=== PATIENT | female | born 1960 | race Caucasian/White ===

== ENCOUNTER 2019-12-22 07:22 | Outpatient (CLI) | payer BC, SELFPAY ==
[2019-12-22 07:42] LABS: Hematocrit 40.7 % (37.0-47.0); Hemoglobin 13.4 g/dL (12.0-15.0); Mean Corpuscular HGB Conc 32.9 g/dl (32-36); Mean Corpuscular Volume 97.1 fl (80-100); Mean Platelet Volume 9.6 fl (7.4-10.4); Platelet Count Result 293 k/mm3 (150-375); Red Blood Count 4.19 M/mm3 (4.2-5.4); Red Cell Distribution Width 12.9 % (11.5-14.5); White Blood Count 5.2 K/mm3 (4.5-10.0)
[2019-12-22 07:55] LABS: Alanine Aminotransferase 28 U/L (4-35); Albumin Level 4.5 g/dL (3.5-5.1); Alkaline Phosphatase 91 U/L (38-126); Aspartate Amino Transferase 39 U/L (14-36); Bilirubin,Total 0.5 mg/dL (0.2-1.3); Blood Urea Nitrogen 8 mg/dL (7-17); Calcium 9.2 mg/dL (8.4-10.2); Carbon Dioxide 28 mmol/L (22-30); Chloride 101 mmol/L (98-107); Cholesterol 235 mg/dL (0-200); Estimated Glomerular Filt Rate > 60; Glucose 105 mg/dL (65-105); HDL Direct 97 mg/dL; Potassium 4.3 mmol/L (3.4-5.0); Sodium 135 mmol/L (137-145); Triglycerides 70 mg/dL (<150)
[2019-12-22 08:07] LABS: LDL Cholesterol Direct 115 mg/dL
== END 2019-12-22 07:23 | disposition home or self-care (01) ==
LOC: ANHLAB 07:24
PROVIDERS: PCP Family Medicine; Visit Provider Physician Assistant
DX: I10 Essential (primary) hypertension (principal); E78.2 Mixed hyperlipidemia
CPT/HCPCS: 36415; 80053; 80061; 85027

== ENCOUNTER 2020-01-30 14:47 | Outpatient (CLI) | payer BC, SELFPAY ==
[2020-01-30 15:57] LABS: Alanine Aminotransferase 21 U/L (4-35); Albumin Level 4.3 g/dL (3.5-5.1); Alkaline Phosphatase 60 U/L (38-126); Anion Gap 11.8 mmol/L (7-16); Aspartate Amino Transferase 24 U/L (14-36); Bilirubin,Total 0.2 mg/dL (0.2-1.3); Blood Urea Nitrogen 7 mg/dL (7-17); Calcium 9.5 mg/dL (8.4-10.2); Carbon Dioxide 29 mmol/L (22-30); Chloride 103 mmol/L (98-107); Estimated Glomerular Filt Rate > 60; Glucose 115 mg/dL (65-105); Potassium 3.8 mmol/L (3.4-5.0); Sodium 140 mmol/L (137-145)
== END 2020-01-30 14:48 | disposition home or self-care (01) ==
PROVIDERS: PCP Family Medicine; Visit Provider Family Medicine
DX: R79.89 Other specified abnormal findings of blood chemistry (principal); E87.1 Hypo-osmolality and hyponatremia
CPT/HCPCS: 36415; 80053

== ENCOUNTER 2020-04-21 00:41 | Outpatient (CLI) | payer BC, SELFPAY ==
[2020-04-21 17:41] LABS: SARS-CoV-2 RNA PCR Negative
== END 2020-04-21 00:42 | disposition home or self-care (01) ==
LOC: ANHCOVIDDT 00:41
PROVIDERS: PCP Family Medicine; Visit Provider Internal Medicine Gastroenterology
DX: Z01.812 Encounter for preprocedural laboratory examination (principal); Z20.828 Contact with and (suspected) exposure to other viral communicable diseases
CPT/HCPCS: 87635; C9803; U0003

== ENCOUNTER 2020-04-23 02:16 | Day surgery (SDC) | payer BC, SELFPAY ==
[2020-04-17 14:30] VITALS: BMI 26.7
[2020-04-23 07:47] VITALS: BP 149/92; PULSE 111; RESP 18; TEMP 36.4; O2SAT 100; BMI 27.5
[2020-04-23] MEDS: LACTATED RINGERS 1,000 ML 150 ML IV CONT (08:00)
--- NOTE | 2020-04-23 08:07 | WPDANESEPPF ---
Anes - Initial Pre Proc Eval Procedure: Operation Date: 04/23/20 08:30 Proposed Procedures p Screening Colonoscopy - Ramirez Moore MD Date/Time: 04/23/20 08:07 Surgeon: Ramirez Moore MD Pre Op Diagnosis: neoplasm screening Patient Data Age: 60 Gender: F Height: 5 ft 5 in Weight: 75.1 kg Last Vital Signs Temp 97.5 F L 04/23/20 07:47 Pulse 111 H 04/23/20 07:47 Resp 18 04/23/20 07:47 BP 149/92 H 04/23/20 07:47 Pulse Ox 100 04/23/20 07:47 Allergies Allergy/AdvReac Type Severity Reaction Status Date / Time No Known Allergies Allergy Verified 04/23/20 07:46 Home Medications Medication Instructions Recorded Confirmed Type peg 3350-electrolytes 236 240 ml PO Q10M #4000 ml 02/15/20 Rx gram-22.74 gram-6.74 gram-5.86 gram solution Adults Multivitamin 1 tab-cap PO DAILY 04/17/20 04/17/20 History ibuprofen 200 mg PO QAM 04/17/20 04/17/20 History lisinopril 10 mg PO DAILY 04/17/20 04/23/20 History loratadine [Claritin] 10 mg PO DAILY 04/17/20 04/17/20 History peg 3350-electrolytes 236 240 ml PO Q10M #4000 ml 04/21/20 Rx gram-22.74 gram-6.74 gram-5.86 gram solution Patient hx anesthesia problems: none Family hx anesthesia problems: none PMFSH Past Medical History Medical History (Updated 01/06/20 @ 21:52 by Lucero Medina MD) Diverticulosis HTN (hypertension) Surgical History Surgical History History of total abdominal hysterectomy and bilateral salpingo-oophorectomy 01/10/2019 [place] teeth removed Family History Family History Mother Hypertension Patient's mother is in good health Father Carcinoma of colon Family history of malignant neoplasm, Onset Age: 72 Sibling Patient's sister is in good health Patient's brother is in good health Social History Social History (Updated 12/31/19 @ 13:52 by Belgica Werner) Smoking status: Never smoker Second hand tobacco smoke exposure: No Alcohol intake: current Drinks per week: 7 Alcohol use details: WINE Substance use: never Substance use type: does not use Living arrangements: alone Gender identity (if verbalized by the patient): Female Spiritual care concerns: No Anes - Eval Final PreProcedure Day of Procedure 04/23/20 08:07 Patient weight: overweight Heart: regular rate and rhythm Lungs: clear to auscultation Airway: Mallampati scale class II Neurological: alert and oriented Last oral intake: >/= 8 hours ASA classification: II Emergent: no Anesthetic plan: proceed Anesthesia type and monitoring: general GIVS and standard monitoring Informed Consent: The patient's anesthetic plan and its attendant risks and benefits were discussed with the patient/family/POA. Questions were solicited and answers provided to the satisfaction of the patient/family/POA.
--- NOTE | 2020-04-23 08:22 | PM.HPGS ---
History of Present Illness History of Present Illness Consent: Risks, benefits, and alternatives have been discussed and questions answered. Patient agrees to proceed with procedure. Chief complaint: neoplasm screening Narrative: Ana Diaz is a 60 year old female with colon polyps 6 years ago. Review of Systems Constitutional: Constitutional: Denies headache(s) and Denies weakness Eyes: Eyes: Denies blurry vision ENT: Reports Normal hearing present, Denies headache(s) and Denies neck pain Cardiovascular: Cardiovascular: Denies chest pain and Denies dyspnea Respiratory: Respiratory: Denies dyspnea Gastrointestinal: Gastrointestinal: Reports no additional gastrointestinal complaints Genitourinary: Genitourinary: Denies dysuria Musculoskeletal: Musculoskeletal: Denies neck pain Integumentary/Breasts: Skin/Breast: Denies dry skin Neurologic: Reports Normal hearing present, Denies headache(s) and Denies weakness Psychiatric: Psychiatric: Denies anxiety Endocrine: Endocrine: Denies change in body appearance Hematologic/Lymphatic: Hematologic/Lymphatic: Denies easy bleeding Allergic/Immunologic: Allergic/Immunologic: Denies urticaria PMFSH Past Medical History Medical History (Updated 04/23/20 @ 08:22 by Ramirez Moore MD) Adenomatous colon polyp Diverticulosis HTN (hypertension) Surgical History Surgical History History of total abdominal hysterectomy and bilateral salpingo-oophorectomy 01/10/2019 [place] teeth removed Family History Family History Mother Hypertension Patient's mother is in good health Father Carcinoma of colon Family history of malignant neoplasm, Onset Age: 72 Sibling Patient's sister is in good health Patient's brother is in good health Social History Social History (Updated 12/31/19 @ 13:52 by Belgica Werner) Smoking status: Never smoker Second hand tobacco smoke exposure: No Alcohol intake: current Drinks per week: 7 Alcohol use details: WINE Substance use: never Substance use type: does not use Living arrangements: alone Gender identity (if verbalized by the patient): Female Spiritual care concerns: No Meds Home Medications and Allergies Home Medications Medication Instructions Recorded Confirmed Type peg 3350-electrolytes 236 240 ml PO Q10M #4000 ml 02/15/20 Rx gram-22.74 gram-6.74 gram-5.86 gram solution Adults Multivitamin 1 tab-cap PO DAILY 04/17/20 04/17/20 History ibuprofen 200 mg PO QAM 04/17/20 04/17/20 History lisinopril 10 mg PO DAILY 04/17/20 04/23/20 History loratadine [Claritin] 10 mg PO DAILY 04/17/20 04/17/20 History peg 3350-electrolytes 236 240 ml PO Q10M #4000 ml 04/21/20 Rx gram-22.74 gram-6.74 gram-5.86 gram solution Allergies Allergy/AdvReac Type Severity Reaction Status Date / Time No Known Allergies Allergy Verified 04/23/20 07:46 Vital Signs Vital Signs - 24 hr 04/23/20 07:47 Temperature 97.5 F L Pulse Rate 111 H Respiratory Rate 18 Blood Pressure 149/92 H Pulse Oximetry 100 Exam Const: General: comfortable and no acute distress HENMT: General nose exam: Normal nares present Eyes: General: appearance normal, both eyes and all related structures Neck: Neck: no JVD Resp: Auscultation: clear to auscultation bilaterally Cardio: Rate: regular rate Rhythm: regular rhythm GI: Inspection: non-distended GI Palp: Yes Soft to palpation Skin: General skin exam: normal color Neuro: General: gait normal Speech: normal speech Extrem: General: normal to inspection Psych: Mental Status: mental status grossly normal Assessment and Plan Assessment and plan (1) Adenomatous colon polyp: Code(s): D12.6 - Benign neoplasm of colon, unspecified Status: Acute Assessment and Plan: will proceed with colon
[2020-04-23 08:46] VITALS: BP 132/87; PULSE 99; RESP 31; O2SAT 98
[2020-04-23 08:56] VITALS: BP 136/86; PULSE 91; RESP 21; O2SAT 97
[2020-04-23 09:08] VITALS: BP 147/100; PULSE 90; RESP 22; O2SAT 100
== END 2020-04-23 09:15 | disposition home or self-care (01) ==
PROVIDERS: PCP Family Medicine; Visit Provider Internal Medicine Gastroenterology
PROC: 0DJD8ZZ Inspection of Lower Intestinal Tract, Via Natural or Artificial Opening Endoscopic (ICD-10-PCS; CPT 45378; principal; 2020-04-23 08:30)
DX: Z12.11 Encounter for screening for malignant neoplasm of colon (principal); D12.4 Benign neoplasm of descending colon; K57.30 Diverticulosis of large intestine without perforation or abscess without bleeding; K64.8 Other hemorrhoids; I10 Essential (primary) hypertension
CPT/HCPCS: 45380; 88305; J2704; J7120

== ENCOUNTER 2020-12-24 06:54 | Outpatient (CLI) | payer BC, SELFPAY ==
[2020-12-24 07:21] LABS: Basophils Absolute Auto 0.1 K/mm3 (0.0-0.1); Eosinophils Absolute Auto 0.2 K/mm3 (0-0.3); Hematocrit 39.1 % (37.0-47.0); Hemoglobin 12.8 g/dL (12.0-15.0); Immature Granulocyte Absolute 0.02 K/mm3 (0.00-0.031); Immature Granulocyte Percent A 0.4 % (0-0.5); Lymphocytes Percent Auto 32.4 % (18.3-44.2); Mean Corpuscular HGB Conc 32.7 g/dl (32-36); Mean Corpuscular Hemoglobin 31.4 pg (26-34); Mean Corpuscular Volume 95.8 fl (80-100); Mean Platelet Volume 9.6 fl (7.4-10.4); Monocytes Absolute Auto 0.5 K/mm3 (0.1-0.6); Monocytes Percent Auto 9.7 % (2.6-8.5); Neutrophils Absolute Auto 2.8 K/mm3 (1.3-6.7); Neutrophils Percent Auto 52.5 % (45.5-73.1); Platelet Count Result 351 k/mm3 (150-375); Red Blood Count 4.08 M/mm3 (4.2-5.4); Red Cell Distribution Width 12.3 % (11.5-14.5); White Blood Count 5.2 K/mm3 (4.5-10.0)
[2020-12-24 07:26] LABS: Alanine Aminotransferase 22 U/L (4-35); Albumin Level 4.1 g/dL (3.5-5.1); Alkaline Phosphatase 57 U/L (38-126); Anion Gap 7 mmol/L (8-16); Aspartate Amino Transferase 33 U/L (14-36); Bilirubin,Total 0.3 mg/dL (0.2-1.3); Blood Urea Nitrogen 7 mg/dL (7-17); Calcium 9.8 mg/dL (8.4-10.2); Carbon Dioxide 28 mmol/L (22-30); Chloride 107 mmol/L (98-107); Cholesterol 228 mg/dL (0-200); Estimated Glomerular Filt Rate > 60; Glucose 106 mg/dL (65-105); HDL Direct 66 mg/dL; Potassium 4.1 mmol/L (3.4-5.0); Sodium 142 mmol/L (137-145); Triglycerides 100 mg/dL (<150)
[2020-12-24 07:29] LABS: Hemoglobin A1C 5.7 % (<5.7)
[2020-12-24 07:37] LABS: LDL Cholesterol Direct 110 mg/dL
== END 2020-12-24 06:55 | disposition home or self-care (01) ==
PROVIDERS: PCP Family Medicine; Visit Provider Family Medicine
DX: E78.2 Mixed hyperlipidemia (principal); F41.9 Anxiety disorder, unspecified; R73.9 Hyperglycemia, unspecified; I10 Essential (primary) hypertension
CPT/HCPCS: 36415; 80053; 80061; 83036; 84443; 85025

== ENCOUNTER → 2021-01-13 13:39 | Outpatient (CLI) | payer BC, SELFPAY ==
--- NOTE | ~2021-01-13 | MM_ITS ---
EXAMINATION: MM screening [place] BI w angeline HISTORY: Screening mammogram TECHNIQUE: Craniocaudal and mediolateral oblique 3-D tomosynthesis images were obtained and synthetic 2-D images were generated. CAD analysis was submitted and interpreted. COMPARISON: No prior mammogram is available for comparison at this institution. BREAST PARENCHYMAL COMPOSITION: There are scattered areas of fibroglandular density. FINDINGS: There is no evidence of suspicious mass, calcification, or architectural distortion to sugg est malignancy in either breast. There has been no suspicious interval change. IMPRESSION: 1. No mammographic evidence of malignancy. 2. Recommend routine screening mammography in one year. BI-RADS Category 1: Negative Reviewed, dictated and finalized at location B.
== END ==
PROVIDERS: PCP Family Medicine; Visit Provider Family Medicine
DX: Z12.31 Encounter for screening mammogram for malignant neoplasm of breast (principal)
CPT/HCPCS: 77063; 77067

== ENCOUNTER 2021-12-16 07:35 | Outpatient (CLI) | payer BC, SELFPAY ==
[2021-12-16 07:57] LABS: Basophils Absolute Auto 0.1 K/mm3 (0.0-0.1); Basophils Percent Auto 1.3 % (0.2-1.2); Eosinophils Absolute Auto 0.3 K/mm3 (0-0.3); Eosinophils Percent Auto 5.3 % (0-4.4); Hematocrit 41.2 % (37.0-47.0); Hemoglobin 13.1 g/dL (12.0-15.0); Immature Granulocyte Absolute 0.01 K/mm3 (0.00-0.031); Immature Granulocyte Percent A 0.2 % (0-0.5); Lymphocytes Absolute Auto 1.49 K/mm3 (0.9-3.2); Lymphocytes Percent Auto 28.2 % (18.3-44.2); Mean Corpuscular HGB Conc 31.8 g/dl (32-36); Mean Corpuscular Hemoglobin 32.2 pg (26-34); Mean Corpuscular Volume 101.2 fl (80-100); Mean Platelet Volume 9.6 fl (7.4-10.4); Monocytes Absolute Auto 0.7 K/mm3 (0.1-0.6); Monocytes Percent Auto 12.3 % (2.6-8.5); Neutrophils Absolute Auto 2.8 K/mm3 (1.3-6.7); Neutrophils Percent Auto 52.7 % (45.5-73.1); Platelet Count Result 269 k/mm3 (150-375); Red Blood Count 4.07 M/mm3 (4.2-5.4); Red Cell Distribution Width 13.3 % (11.5-14.5); White Blood Count 5.3 K/mm3 (4.5-10.0)
[2021-12-16 08:07] LABS: Hemoglobin A1C 5.5 % (<5.7)
[2021-12-16 08:11] LABS: Alanine Aminotransferase 27 U/L (6-35); Albumin Level 4.4 g/dL (3.5-5.1); Alkaline Phosphatase 76 U/L (38-126); Anion Gap 5 mmol/L (8-16); Aspartate Amino Transferase 33 U/L (14-36); Bilirubin,Total 0.5 mg/dL (0.2-1.3); Blood Urea Nitrogen 11 mg/dL (7-17); Calcium 8.9 mg/dL (8.4-10.2); Carbon Dioxide 28 mmol/L (22-30); Chloride 107 mmol/L (98-107); Cholesterol 265 mg/dL (0-200); Estimated Glomerular Filt Rate > 60; Glucose 107 mg/dL (65-110); HDL Direct 90 mg/dL; Potassium 4.4 mmol/L (3.4-5.0); Sodium 140 mmol/L (137-145); Triglycerides 62 mg/dL (<150)
[2021-12-16 08:27] LABS: LDL Cholesterol Direct 134 mg/dL
== END 2021-12-16 07:36 | disposition home or self-care (01) ==
LOC: ANHLAB 07:37
PROVIDERS: PCP Family Medicine; Visit Provider Nurse Practitioner Gerontology
DX: R73.9 Hyperglycemia, unspecified (principal); I10 Essential (primary) hypertension
CPT/HCPCS: 36415; 80053; 80061; 83036; 84443; 85025

== ENCOUNTER 2022-02-14 13:20 | Emergency (ER) | payer BC, SELFPAY ==
--- NOTE | 2022-02-14 13:36 | ED.SKABFB ---
HPI - Skin/Abscess/Foreign Bdy General Chief complaint: Skin/Abscess/Foreign Body Stated complaint: lumps on chest Time Seen by Provider: 02/14/22 15:00 Source: patient Mode of arrival: ambulatory Limitations: no limitations History of Present Illness HPI narrative: Ms. Boyd is a 61-year-old female patient presenting to the clinic today with complaints of lumps on her chest is 2 days She reports she has had a scratchy throat. She denies any fever or chills. She reports that these lumps on her chest seem to swell and go to down. She taken a at home COVID test this morning it was negative. Related Data Home Medications Medication Instructions Recorded Confirmed Adults Multivitamin 1 tab-cap PO DAILY 04/17/20 02/14/22 ibuprofen 200 mg tablet 200 mg PO QAM 04/17/20 02/14/22 loratadine 10 mg tablet (Claritin) 10 mg PO DAILY 04/17/20 02/14/22 Allergies Allergy/AdvReac Type Severity Reaction Status Date / Time No Known Allergies Allergy Verified 02/14/22 13:25 Review of Systems Review of Systems: Pertinent positives per HPI. Patient denies any fever, chills, rash, headache, visual changes, dizziness, cough, runny nose, sore throat, shortness of breath, chest pain, palpitations, nausea, vomiting, diarrhea, constipation, abdominal pain, or any urinary issues. REPLACED BY [facility] Past Medical History Medical History Abnormal colonoscopy 2019, repeat in 5 years. Adenomatous colon polyp Diverticulosis HTN (hypertension) Surgical History Surgical History History of total abdominal hysterectomy and bilateral salpingo-oophorectomy 01/10/2019 Hx of colonoscopy with polypectomy [place] teeth removed Family History Family History Mother Hypertension Patient's mother is in good health Father Carcinoma of colon Family history of malignant neoplasm, Onset Age: 72 Sibling Patient's sister is in good health Patient's brother is in good health Social History Social History Social History: Single Smoking status: Never smoker Second hand tobacco smoke exposure: No Alcohol intake: current Drinks per week: 7 Alcohol use details: WINE Substance use: never Substance use type: does not use Gender identity (if verbalized by the patient): Female Sexual Orientation (if Verbalized by the Patient): Straight or Heterosexual Spiritual care concerns: No Comments At the time of my signature, I reviewed and agree with the nursing past medical, surgical, social, and family history. There is no relevant family history pertinent to the patient complaint. Exam Narrative: General: Well-developed, well nourished, in no apparent distress Head: Normocephalic, atraumatic. Lymph: Left supraclavicular lymph node swelling, nontender Cardio: Regular rate and rhythm, s1 and s2 normal, no murmur appreciated. Resp: Clear to auscultation bilaterally, no rhonchi, rales, wheezing or rubs. Integumentary: Bush, warm, and dry, intact without lesion, no rashes. Course Course Emergency Course: Portions of this record may have been created with voice recognition software. Level of Care: Express Care Visit Vital Signs Vital signs: Vital signs reviewed MDM - Skin/Abscess/Foreign Bdy MDM Narrative Medical decision making narrative: At the time of visit patient is resting comfortably on the exam table. Strep screen was obtained and was negative in the clinic today. She is already done a COVID test at home and it was negative. Supportive measures were discussed with the patient she voiced understanding of discharge instructions and agrees to treatment plan. Differential Diagnosis Differential diagnosis: Likely cellulitis and other (Lymphadenopathy, strep pharyngitis, viral syndrome) D
[2022-02-14 13:50] VITALS: BP 151/88; PULSE 96; RESP 20; TEMP 36.9; O2SAT 100
== END 2022-02-14 15:00 | disposition home or self-care (01) ==
PROVIDERS: Emergency Provider Nurse Practitioner Family; PCP Family Medicine
DX: L04.0 Acute lymphadenitis of face, head and neck (principal); I10 Essential (primary) hypertension
CPT/HCPCS: 87081; 87880; 99213; G0463

== ENCOUNTER → 2022-03-22 16:00 | Outpatient (CLI) | payer BC, SELFPAY ==
--- NOTE | ~2022-03-22 | XR_ITS ---
EXAMINATION: XR chest 2V 03/22/2022 16:14 INDICATION: Shortness of breath PROCEDURE: 2 view chest COMPARISON: No prior studies for comparison. FINDINGS: There is a nodular density in the right mid thorax. No focal pneumonia, effusion or pneumot horax. The cardiomediastinal silhouette is within normal limits. There are no pleural effusions. Th ere is no pneumothorax suspected. IMPRESSION: 1: Nodular density right mid thorax on PA view. This is not confirmed on lateral view. Correlation w ith CT chest recommended. Reviewed, dictated and finalized at location A. IMPRESSION: 1: Nodular density right mid thorax on PA view. This is not confirmed on later al view. Correlation with CT chest recommended.
== END ==
PROVIDERS: PCP Family Medicine; Visit Provider Family Medicine
DX: R06.02 Shortness of breath (principal)
CPT/HCPCS: 71046

== ENCOUNTER 2022-03-24 01:39 | Day surgery (SDC) | payer BC, SELFPAY ==
[2022-03-19 12:27] VITALS: BMI 28.3
[2022-03-24 08:14] VITALS: BP 163/94; PULSE 96; RESP 20; TEMP 37; O2SAT 98
[2022-03-24] MEDS: LACTATED RINGERS 1,000 ML 150 ML IV CONT (08:25)
--- NOTE | 2022-03-24 08:37 | WPDANESEPPF ---
Anes - Initial Pre Proc Eval Procedure: Operation Date: 03/24/22 09:45 Proposed Procedures p Esophagogastroduodenoscopy - Ramirez Moore MD Date/Time: 03/24/22 08:37 Surgeon: Ramirez Moore MD Pre Op Diagnosis: GERD Patient Data Age: 62 Gender: F Height: 1.65 m Weight: 75.4 kg Last Vital Signs Temp 98.6 F 03/24/22 08:14 Pulse 96 03/24/22 08:14 Resp 20 03/24/22 08:14 BP 163/94 H 03/24/22 08:14 Pulse Ox 98 03/24/22 08:14 O2 Del Method Room Air 03/24/22 08:14 Allergies Allergy/AdvReac Type Severity Reaction Status Date / Time No Known Allergies Allergy Verified 03/24/22 08:13 Home Medications Medication Instructions Recorded Confirmed Type Adults Multivitamin 1 tab-cap PO DAILY 04/17/20 03/19/22 History loratadine 10 mg tablet (Claritin) 10 mg PO DAILY 04/17/20 03/19/22 History lisinopril 10 mg tablet See Rx Instructions .Route 02/26/22 03/19/22 Rx .COMPLEX #90 tabs pantoprazole 40 mg tablet,delayed 40 mg PO QAM #90 tabs 03/11/22 03/19/22 Rx release mecobalamin (vitamin B12) 1,000 1,000 mcg PO DAILY #60 ea 03/15/22 03/19/22 Rx mcg lozenges Patient hx anesthesia problems: none Family hx anesthesia problems: none Results Review: All pre-operative results and documents have been reviewed as part of the pre-operative evaluation. [facility] Past Medical History Medical History Abnormal colonoscopy 2019, repeat in 5 years. Adenomatous colon polyp Adnexal mass Bulky or enlarged uterus Cellulitis and abscess of finger, unspecified Cutaneous abscess of unspecified hand Diverticulosis Elevated BP without diagnosis of hypertension Essential (primary) hypertension Fibroids, subserous HTN (hypertension) Mass of ovary Mixed hyperlipidemia Surgical History Surgical History History of total abdominal hysterectomy and bilateral salpingo-oophorectomy 01/10/2019 Hx of colonoscopy with polypectomy [place] teeth removed Family History Family History Mother Hypertension Patient's mother is in good health Father Carcinoma of colon Family history of malignant neoplasm, Onset Age: 72 Sibling Patient's sister is in good health Patient's brother is in good health Social History Social History Social History: Single Smoking status: Never smoker Second hand tobacco smoke exposure: No Alcohol intake: current Drinks per week: 7 Alcohol use details: one glass of wine daily Substance use: current Substance use type: does not use Living arrangements: alone Gender identity (if verbalized by the patient): Female Sexual Orientation (if Verbalized by the Patient): Straight or Heterosexual Spiritual care concerns: No Anes - Eval Final PreProcedure Day of Procedure 03/24/22 08:37 Patient weight: normal Heart: regular rate and rhythm Lungs: clear to auscultation Airway: Mallampati scale class II Neurological: alert and oriented Last oral intake: >/= 8 hours ASA classification: II Emergent: no Anesthetic plan: proceed Anesthesia type and monitoring: general GIVS and standard monitoring Results Review: All pre-operative results and documents have been reviewed as part of the pre-operative evaluation. Informed Consent: The patient's anesthetic plan and its attendant risks and benefits were discussed with the patient/family/POA. Questions were solicited and answers provided to the satisfaction of the patient/family/POA.
--- NOTE | 2022-03-24 09:06 | PM.HPGS ---
History of Present Illness History of Present Illness Consent: Risks, benefits, and alternatives have been discussed and questions answered. Patient agrees to proceed with procedure. Chief complaint: GERD Narrative: Ana Diaz is a 62 year old female with gerd and intermittent dysphagia but better after started using protonix few months ago, never had egd Review of Systems Constitutional: Constitutional: Denies headache(s) and Denies weakness Eyes: Eyes: Denies blurry vision ENT: Reports Normal hearing present, Denies headache(s) and Denies neck pain Cardiovascular: Cardiovascular: Denies chest pain and Denies dyspnea Respiratory: Respiratory: Denies dyspnea Gastrointestinal: Gastrointestinal: Reports no additional gastrointestinal complaints Genitourinary: Genitourinary: Denies dysuria Musculoskeletal: Musculoskeletal: Denies neck pain Integumentary/Breasts: Skin/Breast: Denies dry skin Neurologic: Reports Normal hearing present, Denies headache(s) and Denies weakness Psychiatric: Psychiatric: Denies anxiety Endocrine: Endocrine: Denies change in body appearance Hematologic/Lymphatic: Hematologic/Lymphatic: Denies easy bleeding Allergic/Immunologic: Allergic/Immunologic: Denies urticaria PMFSH Past Medical History Medical History Abnormal colonoscopy 2019, repeat in 5 years. Adenomatous colon polyp Adnexal mass Bulky or enlarged uterus Cellulitis and abscess of finger, unspecified Cutaneous abscess of unspecified hand Diverticulosis Elevated BP without diagnosis of hypertension Essential (primary) hypertension Fibroids, subserous HTN (hypertension) Mass of ovary Mixed hyperlipidemia Surgical History Surgical History History of total abdominal hysterectomy and bilateral salpingo-oophorectomy 01/10/2019 Hx of colonoscopy with polypectomy [place] teeth removed Family History Family History Mother Hypertension Patient's mother is in good health Father Carcinoma of colon Family history of malignant neoplasm, Onset Age: 72 Sibling Patient's sister is in good health Patient's brother is in good health Social History Social History Social History: Single Smoking status: Never smoker Second hand tobacco smoke exposure: No Alcohol intake: current Drinks per week: 7 Alcohol use details: one glass of wine daily Substance use: current Substance use type: does not use Living arrangements: alone Gender identity (if verbalized by the patient): Female Sexual Orientation (if Verbalized by the Patient): Straight or Heterosexual Spiritual care concerns: No Meds Home Medications and Allergies Home Medications Medication Instructions Recorded Confirmed Type Adults Multivitamin 1 tab-cap PO DAILY 04/17/20 03/19/22 History loratadine 10 mg tablet (Claritin) 10 mg PO DAILY 04/17/20 03/19/22 History lisinopril 10 mg tablet See Rx Instructions .Route 02/26/22 03/19/22 Rx .COMPLEX #90 tabs pantoprazole 40 mg tablet,delayed 40 mg PO QAM #90 tabs 03/11/22 03/19/22 Rx release mecobalamin (vitamin B12) 1,000 1,000 mcg PO DAILY #60 ea 03/15/22 03/19/22 Rx mcg lozenges Allergies Allergy/AdvReac Type Severity Reaction Status Date / Time No Known Allergies Allergy Verified 03/24/22 08:13 Vital Signs Vital Signs - 24 hr 03/24/22 08:14 Temperature 98.6 F Pulse Rate 96 Respiratory Rate 20 Blood Pressure 163/94 H Pulse Oximetry 98 Oxygen Delivery Room Air Exam Const: General: comfortable and no acute distress HENMT: General nose exam: Normal nares present Eyes: General: appearance normal, both eyes and all related structures Neck: Neck: no JVD Resp: Auscultation: clear to auscultation bilaterally Ca
[2022-03-24 09:23] VITALS: BP 150/95; PULSE 95; RESP 23; O2SAT 98
[2022-03-24 09:34] VITALS: BP 155/103; PULSE 93; RESP 24; O2SAT 98
[2022-03-24 09:47] VITALS: BP 161/106; PULSE 90; RESP 21; O2SAT 98
== END 2022-03-24 09:53 | disposition home or self-care (01) ==
PROVIDERS: PCP Family Medicine; Visit Provider Internal Medicine Gastroenterology
PROC: 0DJ08ZZ Inspection of Upper Intestinal Tract, Via Natural or Artificial Opening Endoscopic (ICD-10-PCS; CPT 43235; principal; 2022-03-24 09:45)
DX: K21.9 Gastro-esophageal reflux disease without esophagitis (principal); K22.10 Ulcer of esophagus without bleeding; K44.9 Diaphragmatic hernia without obstruction or gangrene; K22.2 Esophageal obstruction; I10 Essential (primary) hypertension; E78.2 Mixed hyperlipidemia
CPT/HCPCS: 43239; 43249; 88305; C1726; J2704; J7120

== ENCOUNTER → 2022-04-05 13:40 | Outpatient (CLI) | payer BC, SELFPAY ==
--- NOTE | ~2022-04-05 | CT_ITS ---
EXAMINATION: CT diagnostic chest wo con DATE: 04/05/2022 14:07 INDICATION: Follow-up abnormal x-ray TECHNIQUE: Computed tomography (CT) of the chest was performed without intravenous contrast. The dose -length product was 330.07 mGy-cm. Automated exposure control and iterative reconstruction technique were employed. COMPARISON: Chest dated 03/22/2022 FINDINGS: There is an 8 mm nodule in the right middle lobe corresponding to the x-ray finding. There is an 7 mm nodule in the right middle lobe, image 64, located medially. There is mediastinal lymphade nopathy, nonspecific. No significant vascular abnormality. There is mild thickening of the distal eso phagus. Heart size normal. No significant pleural or pericardial effusion. The liver, spleen, pancreas, are unremarkable. There are small bilateral low-density masses in the ad renal glands bilaterally, largest measuring 1.6 cm in the right adrenal gland. These are most likely benign adenoma statistically. Gallbladder is present. No axillary lymphadenopathy. Mild thoracic and upper lumbar spondylosis. IMPRESSION: 1. Right middle lobe nodules measuring 8 and 7 mm respectively which are suspicious. Recommend follow -up PET/CT scan or repeat CT in 3 months. 2: Mild mediastinal lymphadenopathy, nonspecific. Reviewed, dictated and finalized at location A. IMPRESSION: 1. Right middle lobe nodules measuring 8 and 7 mm respectively which are suspic ious. Recommend follow-up PET/CT scan or repeat CT in 3 months. 2: Mild mediastinal lymphadenopathy, nonspecific.
== END ==
PROVIDERS: PCP Nurse Practitioner Gerontology; Visit Provider Nurse Practitioner Gerontology
DX: R91.8 Other nonspecific abnormal finding of lung field (principal)
CPT/HCPCS: 71250

== ENCOUNTER → 2022-06-14 10:36 | Outpatient (CLI) | payer BC, SELFPAY ==
--- NOTE | ~2022-06-14 | MM_ITS ---
EXAMINATION: MM screening [place] BI w angeline HISTORY: Screening TECHNIQUE: Craniocaudal and mediolateral oblique 3-D tomosynthesis images were obtained and synthetic 2-D images were generated. CAD analysis was submitted and interpreted. COMPARISON: No prior mammogram is available for comparison at this institution. BREAST PARENCHYMAL COMPOSITION: There are scattered areas of fibroglandular density. FINDINGS: There is no evidence of suspicious mass, calcification, or architectural distortion to sugg est malignancy in either breast. There has been no suspicious interval change. IMPRESSION: 1. No mammographic evidence of malignancy. 2. Recommend routine screening mammography in one year. BI-RADS Category 1: Negative Reviewed, dictated and finalized at location B. [employer]
== END ==
PROVIDERS: PCP Family Medicine; Visit Provider Family Medicine
DX: Z12.31 Encounter for screening mammogram for malignant neoplasm of breast (principal)
CPT/HCPCS: 77063; 77067

== ENCOUNTER 2022-06-28 13:53 | Outpatient (CLI) | payer BC, SELFPAY ==
--- NOTE | ~2022-06-28 | CT_ITS ---
CT Scan of the Chest without Contrast: Clinical Indication: Lung nodules Technique: Contiguous sections were acquired throughout the chest without intravenous contrast. Dose reduction technique was used on this scan by utilizing automated exposure control and iterative recon struction technique. The dose-length product (DLP) was 125.51 mGy-cm. COMPARISON: 04/05/2022 Findings: There is no evidence of any significant mediastinal, hilar or axillary lymphadenopathy. The mediastin al soft tissues appear normal. There is no evidence of pleural or pericardial effusion. 2 noncalcified right middle lobe pulmonary nodules are again identified, again measuring approximate 8 mm in diameter each, without significant change from prior exam. Images through the upper abdomen reveal no abnormalities. Impression: Stable 8 mm noncalcified right middle lobe pulmonary nodules. Additional repeat CT scan in 6-9 months recommended. Reviewed, dictated and finalized at [facility]. TASTER Impression: Stable 8 mm noncalcified right middle lobe pulmonary nodules. Additional repeat CT scan in 6-9 months recommended.
== END 2022-06-28 13:54 | disposition home or self-care (01) ==
PROVIDERS: PCP Family Medicine; Visit Provider Internal Medicine Pulmonary Disease
DX: R91.1 Solitary pulmonary nodule (principal); R91.8 Other nonspecific abnormal finding of lung field
CPT/HCPCS: 71250

== ENCOUNTER 2022-06-30 00:14 | Day surgery (SDC) | payer BC, SELFPAY ==
[2022-06-21 15:15] VITALS: BMI 29.1
[2022-06-30 07:56] VITALS: BP 145/88; PULSE 103; RESP 16; TEMP 36.6; O2SAT 95; BMI 28.9
[2022-06-30] MEDS: LACTATED RINGERS 1,000 ML 150 ML IV CONT (08:04)
--- NOTE | 2022-06-30 08:47 | WPDANESEPPF ---
Anes - Initial Pre Proc Eval Procedure: Operation Date: 06/30/22 09:15 Proposed Procedures p Esophagogastroduodenoscopy - Ramirez Moore MD Date/Time: 06/30/22 08:47 Surgeon: Ramirez Moore MD Pre Op Diagnosis: esophageal ring and ulcer Patient Data Age: 62 Gender: F Height: 1.65 m Weight: 78.8 kg Last Vital Signs Temp 98 F 06/30/22 07:56 Pulse 103 H 06/30/22 07:56 Resp 16 06/30/22 07:56 BP 145/88 H 06/30/22 07:56 Pulse Ox 95 06/30/22 07:56 O2 Del Method Room Air 06/30/22 07:56 Allergies Allergy/AdvReac Type Severity Reaction Status Date / Time No Known Allergies Allergy Verified 06/30/22 07:55 Home Medications Medication Instructions Recorded Confirmed Type Adults Multivitamin 1 tab-cap PO DAILY 04/17/20 06/30/22 History loratadine 10 mg tablet (Claritin) 10 mg PO DAILY 04/17/20 06/30/22 History lisinopril 10 mg tablet See Rx Instructions .Route 02/26/22 06/30/22 Rx .COMPLEX #90 tabs mecobalamin (vitamin B12) 1,000 1,000 mcg PO DAILY #60 ea 03/15/22 06/30/22 Rx mcg lozenges pantoprazole 40 mg tablet,delayed 40 mg PO QAM #90 tabs 03/24/22 06/30/22 Rx release Patient hx anesthesia problems: none Family hx anesthesia problems: none Results Review: All pre-operative results and documents have been reviewed as part of the pre-operative evaluation. [facility] Past Medical History Medical History Abnormal colonoscopy 2019, repeat in 5 years. Adenomatous colon polyp Adnexal mass Bulky or enlarged uterus Cellulitis and abscess of finger, unspecified Cutaneous abscess of unspecified hand Diverticulosis Elevated BP without diagnosis of hypertension Essential (primary) hypertension Fibroids, subserous HTN (hypertension) Mass of ovary Mixed hyperlipidemia Surgical History Surgical History History of total abdominal hysterectomy and bilateral salpingo-oophorectomy 01/10/2019 Hx of colonoscopy with polypectomy [employer] teeth removed Family History Family History (Updated 05/06/22 @ 14:51 by Lillian Tapia MA) Mother Hypertension Patient's mother is in good health Father Carcinoma of colon Family history of malignant neoplasm, Onset Age: 72 Sibling Patient's sister is in good health Patient's brother is in good health Status post surgical removal of malignant neoplasm of skin Social History Social History Social History: Single Smoking status: Never smoker Second hand tobacco smoke exposure: No Alcohol intake: current Drinks per week: 7 Alcohol use details: one glass of wine daily Substance use: never Substance use type: does not use Living arrangements: alone Gender identity (if verbalized by the patient): Female Sexual Orientation (if Verbalized by the Patient): Straight or Heterosexual Spiritual care concerns: No Anes - Eval Final PreProcedure Day of Procedure 06/30/22 08:47 Patient weight: normal Heart: regular rate and rhythm Lungs: clear to auscultation Airway: Mallampati scale class II Neurological: alert and oriented Last oral intake: >/= 8 hours ASA classification: II Emergent: no Anesthetic plan: proceed Anesthesia type and monitoring: general GIVS and standard monitoring Results Review: All pre-operative results and documents have been reviewed as part of the pre-operative evaluation. Informed Consent: The patient's anesthetic plan and its attendant risks and benefits were discussed with the patient/family/POA. Questions were solicited and answers provided to the satisfaction of the patient/family/POA.
--- NOTE | 2022-06-30 08:55 | PM.HPGS ---
History of Present Illness History of Present Illness Consent: Risks, benefits, and alternatives have been discussed and questions answered. Patient agrees to proceed with procedure. Chief complaint: esophageal ring and ulcer Narrative: Ana Diaz is a 62 year old female with erosive esophagitis and ring that was dilated 03/2022, much better using pantoprazole. Review of Systems Constitutional: Constitutional: Denies headache(s) and Denies weakness Eyes: Eyes: Denies blurry vision ENT: Reports Normal hearing present, Denies headache(s) and Denies neck pain Cardiovascular: Cardiovascular: Denies chest pain and Denies dyspnea Respiratory: Respiratory: Denies dyspnea Gastrointestinal: Gastrointestinal: Reports no additional gastrointestinal complaints Genitourinary: Genitourinary: Denies dysuria Musculoskeletal: Musculoskeletal: Denies neck pain Integumentary/Breasts: Skin/Breast: Denies dry skin Neurologic: Reports Normal hearing present, Denies headache(s) and Denies weakness Psychiatric: Psychiatric: Denies anxiety Endocrine: Endocrine: Denies change in body appearance Hematologic/Lymphatic: Hematologic/Lymphatic: Denies easy bleeding Allergic/Immunologic: Allergic/Immunologic: Denies urticaria PMFSH Past Medical History Medical History (Updated 06/30/22 @ 08:56 by Ramirez Moore MD) Abnormal colonoscopy 2019, repeat in 5 years. Adenomatous colon polyp Adnexal mass Bulky or enlarged uterus Cellulitis and abscess of finger, unspecified Cutaneous abscess of unspecified hand Diverticulosis Elevated BP without diagnosis of hypertension Esophageal ring Essential (primary) hypertension Fibroids, subserous HTN (hypertension) Mass of ovary Mixed hyperlipidemia Surgical History Surgical History History of total abdominal hysterectomy and bilateral salpingo-oophorectomy 01/10/2019 Hx of colonoscopy with polypectomy [place] teeth removed Family History Family History (Updated 05/06/22 @ 14:51 by Lillian Tapia MA) Mother Hypertension Patient's mother is in good health Father Carcinoma of colon Family history of malignant neoplasm, Onset Age: 72 Sibling Patient's sister is in good health Patient's brother is in good health Status post surgical removal of malignant neoplasm of skin Social History Social History Social History: Single Smoking status: Never smoker Second hand tobacco smoke exposure: No Alcohol intake: current Drinks per week: 7 Alcohol use details: one glass of wine daily Substance use: never Substance use type: does not use Living arrangements: alone Gender identity (if verbalized by the patient): Female Sexual Orientation (if Verbalized by the Patient): Straight or Heterosexual Spiritual care concerns: No Meds Home Medications and Allergies Home Medications Medication Instructions Recorded Confirmed Type Adults Multivitamin 1 tab-cap PO DAILY 04/17/20 06/30/22 History loratadine 10 mg tablet (Claritin) 10 mg PO DAILY 04/17/20 06/30/22 History lisinopril 10 mg tablet See Rx Instructions .Route 02/26/22 06/30/22 Rx .COMPLEX #90 tabs mecobalamin (vitamin B12) 1,000 1,000 mcg PO DAILY #60 ea 03/15/22 06/30/22 Rx mcg lozenges pantoprazole 40 mg tablet,delayed 40 mg PO QAM #90 tabs 03/24/22 06/30/22 Rx release Allergies Allergy/AdvReac Type Severity Reaction Status Date / Time No Known Allergies Allergy Verified 06/30/22 07:55 Vital Signs Vital Signs - 24 hr 06/30/22 07:56 Temperature 98 F Pulse Rate 103 H Respiratory Rate 16 Blood Pressure 145/88 H Pulse Oximetry 95 Oxygen Delivery Room Air Exam Const: General: comfortable and no acute distress HENMT: Face/Nose/Sinus: Normal nares present Eyes: General: appearance normal, both eyes and all related structures Neck: Neck
[2022-06-30 09:17] VITALS: BP 132/91; PULSE 101; RESP 26; O2SAT 93
[2022-06-30 09:27] VITALS: BP 146/92; PULSE 91; RESP 19; O2SAT 99
[2022-06-30 09:37] VITALS: BP 148/91; PULSE 90; RESP 13; O2SAT 99
== END 2022-06-30 09:46 | disposition home or self-care (01) ==
PROVIDERS: PCP Family Medicine; Visit Provider Internal Medicine Gastroenterology
PROC: 0DJ08ZZ Inspection of Upper Intestinal Tract, Via Natural or Artificial Opening Endoscopic (ICD-10-PCS; CPT 43235; principal; 2022-06-30 09:15)
DX: K21.9 Gastro-esophageal reflux disease without esophagitis (principal); K22.2 Esophageal obstruction; K44.9 Diaphragmatic hernia without obstruction or gangrene; I10 Essential (primary) hypertension; Z87.19 Personal history of other diseases of the digestive system
CPT/HCPCS: 43249; C1726; J2704; J7120

== ENCOUNTER 2022-09-13 11:03 | Outpatient (CLI) | payer BC, SELFPAY ==
--- NOTE | ~2022-09-13 | XR_ITS ---
EXAMINATION: XR knee LT 3V DATE: 09/13/2022 11:32 INDICATION: Left knee pain. TECHNIQUE: 3 views of left knee including standing views were obtained. COMPARISON: None. FINDINGS: Bone alignment is normal. No fracture. There is mild tricompartmental osteoarthritis charac terized by tiny osteophytes. No joint space narrowing. There is a small knee joint effusion. IMPRESSION: 1. Mild left knee osteoarthritis. 2. Small left knee joint effusion. Reviewed, dictated and finalized at location A.
--- NOTE | ~2022-09-13 | XR_ITS ---
EXAMINATION: XR knee RT 3V DATE: 09/13/2022 11:32 INDICATION: Right knee pain. TECHNIQUE: 3 views of right knee including standing views were obtained. COMPARISON: None. FINDINGS: Bone alignment is normal. No fracture. There is mild tricompartmental osteoarthritis charac terized by marginal osteophytes. No joint space narrowing. No knee joint effusion. IMPRESSION: 1. Mild right knee osteoarthritis. Reviewed, dictated and finalized at location A.
== END 2022-09-13 11:04 | disposition home or self-care (01) ==
LOC: ANHIMG 11:05
PROVIDERS: PCP Family Medicine; Visit Provider Physician Assistant
DX: M17.0 Bilateral primary osteoarthritis of knee (principal); M25.462 Effusion, left knee
CPT/HCPCS: 73562

== ENCOUNTER 2022-09-20 07:03 | Outpatient (CLI) | payer BC, SELFPAY ==
[2022-09-20 08:17] LABS: Basophils Absolute Auto 0.1 K/mm3 (0.0-0.1); Basophils Percent Auto 0.6 % (0.2-1.2); Eosinophils Absolute Auto 0.2 K/mm3 (0-0.3); Eosinophils Percent Auto 1.9 % (0-4.4); Hematocrit 40.8 % (37.0-47.0); Hemoglobin 13.3 g/dL (12.0-15.0); Immature Granulocyte Absolute 0.04 K/mm3 (0.00-0.031); Immature Granulocyte Percent A 0.5 % (0-0.5); Lymphocytes Absolute Auto 1.46 K/mm3 (0.9-3.2); Lymphocytes Percent Auto 17.4 % (18.3-44.2); Mean Corpuscular HGB Conc 32.6 g/dl (32-36); Mean Corpuscular Hemoglobin 32.5 pg (26-34); Mean Corpuscular Volume 99.8 fl (80-100); Mean Platelet Volume 10.3 fl (7.4-10.4); Monocytes Absolute Auto 0.7 K/mm3 (0.1-0.6); Monocytes Percent Auto 7.8 % (2.6-8.5); Neutrophils Percent Auto 71.8 % (45.5-73.1); Platelet Count Result 308 k/mm3 (150-375); Red Blood Count 4.09 M/mm3 (4.2-5.4); White Blood Count 8.4 K/mm3 (4.5-10.0)
[2022-09-20 09:26] LABS: Alanine Aminotransferase 27 U/L (6-35); Albumin Level 4.6 g/dL (3.5-5.1); Alkaline Phosphatase 76 U/L (38-126); Anion Gap 7 mmol/L (8-16); Aspartate Amino Transferase 32 U/L (14-36); Bilirubin,Total 0.5 mg/dL (0.2-1.3); Blood Urea Nitrogen 14 mg/dL (7-17); Calcium 9.7 mg/dL (8.4-10.2); Carbon Dioxide 27 mmol/L (22-30); Chloride 105 mmol/L (98-107); Cholesterol 255 mg/dL (0-200); Estimated Glomerular Filt Rate > 60; Glucose 103 mg/dL (65-110); HDL Direct 92 mg/dL; Potassium 4.5 mmol/L (3.4-5.0); Sodium 139 mmol/L (137-145); Triglycerides 82 mg/dL (<150)
[2022-09-20 09:37] LABS: LDL Cholesterol Direct 129 mg/dL
== END 2022-09-20 07:04 | disposition home or self-care (01) ==
PROVIDERS: PCP Family Medicine; Visit Provider Physician Assistant
DX: R00.0 Tachycardia, unspecified (principal); E78.2 Mixed hyperlipidemia; I10 Essential (primary) hypertension
CPT/HCPCS: 36415; 80053; 80061; 84443; 85025

== ENCOUNTER 2022-10-23 07:04 | Outpatient (CLI) | payer BC, SELFPAY ==
[2022-10-23 08:26] LABS: Basophils Absolute Auto 0.1 K/mm3 (0.0-0.1); Basophils Percent Auto 1.2 % (0.2-1.2); Eosinophils Absolute Auto 0.1 K/mm3 (0-0.3); Eosinophils Percent Auto 1.6 % (0-4.4); Hematocrit 39.8 % (37.0-47.0); Hemoglobin 12.7 g/dL (12.0-15.0); Immature Granulocyte Absolute 0.01 K/mm3 (0.00-0.031); Immature Granulocyte Percent A 0.2 % (0-0.5); Lymphocytes Absolute Auto 1.66 K/mm3 (0.9-3.2); Mean Corpuscular HGB Conc 31.9 g/dl (32-36); Mean Corpuscular Hemoglobin 32.2 pg (26-34); Mean Platelet Volume 10.5 fl (7.4-10.4); Monocytes Absolute Auto 0.6 K/mm3 (0.1-0.6); Monocytes Percent Auto 12.7 % (2.6-8.5); Neutrophils Absolute Auto 2.5 K/mm3 (1.3-6.7); Neutrophils Percent Auto 50.3 % (45.5-73.1); Platelet Count Result 274 k/mm3 (150-375); Red Blood Count 3.94 M/mm3 (4.2-5.4); Red Cell Distribution Width 13.1 % (11.5-14.5); White Blood Count 4.9 K/mm3 (4.5-10.0)
== END 2022-10-23 07:05 | disposition home or self-care (01) ==
PROVIDERS: PCP Family Medicine; Visit Provider Physician Assistant
DX: D64.9 Anemia, unspecified (principal)
CPT/HCPCS: 36415; 85025

== ENCOUNTER 2022-12-13 13:37 | Outpatient (CLI) | payer BC, SELFPAY ==
[2022-12-13 14:00] LABS: Basophils Absolute Auto 0.1 K/mm3 (0.0-0.1); Eosinophils Absolute Auto 0.1 K/mm3 (0-0.3); Eosinophils Percent Auto 0.8 % (0-4.4); Hematocrit 39.9 % (37.0-47.0); Immature Granulocyte Absolute 0.01 K/mm3 (0.00-0.031); Immature Granulocyte Percent A 0.1 % (0-0.5); Lymphocytes Absolute Auto 1.86 K/mm3 (0.9-3.2); Lymphocytes Percent Auto 25.7 % (18.3-44.2); Mean Corpuscular HGB Conc 32.6 g/dl (32-36); Mean Corpuscular Hemoglobin 32.5 pg (26-34); Mean Corpuscular Volume 99.8 fl (80-100); Mean Platelet Volume 9.9 fl (7.4-10.4); Monocytes Absolute Auto 0.6 K/mm3 (0.1-0.6); Monocytes Percent Auto 8.1 % (2.6-8.5); Neutrophils Absolute Auto 4.7 K/mm3 (1.3-6.7); Neutrophils Percent Auto 64.3 % (45.5-73.1); Platelet Count Result 278 k/mm3 (150-375); Red Cell Distribution Width 14.3 % (11.5-14.5); White Blood Count 7.2 K/mm3 (4.5-10.0)
[2022-12-13 14:31] LABS: Iron 111 ug/dL (37-170)
[2022-12-13 14:41] LABS: Percent Iron Saturation 36 % (20-50)
[2022-12-17 05:58] LABS: Red Blood Cell Folate 512 ng/mL RBC (>280)
== END 2022-12-13 13:38 | disposition home or self-care (01) ==
LOC: ANHLAB 13:38
PROVIDERS: PCP Family Medicine; Visit Provider Physician Assistant
DX: D64.9 Anemia, unspecified (principal)
CPT/HCPCS: 36415; 82607; 82728; 82747; 83540; 83550; 85025

== ENCOUNTER 2023-01-05 09:41 | Outpatient (CLI) | payer BC, SELFPAY ==
--- NOTE | ~2023-01-05 | CT_ITS ---
EXAMINATION:CT diagnostic chest wo con DATE: 01/05/2023 10:12 INDICATION: Lung nodules. TECHNIQUE: Computed tomography (CT) of the chest was performed without intravenous contrast. Automate d exposure control and iterative reconstruction technique were employed. The dose-length product (DLP ) was 105.27 mGy-cm. COMPARISON: Chest CT 06/28/2022, 04/05/22 FINDINGS: The lungs demonstrate minimal atelectasis. There are a few nodules in right middle lobe evelyne suring up to 8 mm without change. No pleural effusion. The heart size is normal. No pericardial effus ion. There is a small sliding hiatal hernia. There is mild thoracic spondylosis. IMPRESSION: 1. Pulmonary nodules measuring up to 8 mm, stable from 04/05/2022, likely benign. Noncontrast low-dose chest CT is recommended in one year. Reviewed, dictated and finalized at location A. IMPRESSION: 1. Pulmonary nodules measuring up to 8 mm, stable from 04/05/2022, likely benign . Noncontrast low-dose chest CT is recommended in one year.
== END 2023-01-05 09:42 | disposition home or self-care (01) ==
PROVIDERS: PCP Family Medicine; Visit Provider Internal Medicine Pulmonary Disease
DX: R91.1 Solitary pulmonary nodule (principal); R91.8 Other nonspecific abnormal finding of lung field
CPT/HCPCS: 71250

== ENCOUNTER 2023-04-06 16:05 | Outpatient (CLI) | payer BC, SELFPAY ==
--- NOTE | ~2023-04-06 | US_ITS ---
US venous doppler [facility] DATE: 04/06/2023 16:27 INDICATION: Pain and swelling at left ankle TECHNIQUE: Real-time and color flow imaging and Doppler analysis of the veins of the left lower extre mity COMPARISON: None FINDINGS: There is spontaneous and phasic flow and normal augmentation and color flow signal and norm al compression of the deep veins of the left lower extremity. The left greater saphenous vein is lipscomb nt. IMPRESSION: No evidence of deep venous thrombosis of left lower extremity Reviewed, dictated and finalized at Location A. Reviewed, dictated and finalized at location B.
== END 2023-04-06 16:06 | disposition home or self-care (01) ==
PROVIDERS: PCP Family Medicine; Visit Provider Physician Assistant
DX: R60.0 Localized edema (principal)
CPT/HCPCS: 93971

== ENCOUNTER 2023-09-16 15:43 | Outpatient (CLI) | payer BC, SELFPAY ==
--- NOTE | ~2023-09-16 | XR_ITS ---
EXAMINATION: XR knee RT min 4V DATE: 09/16/2023 16:21 INDICATION: Bilateral primary osteoarthritis of knee. TECHNIQUE: 4 views of right knee including standing views were obtained. COMPARISON: Right knee radiographs 09/13/2022 FINDINGS: Bone alignment is normal. No fracture. There is severe osteoarthritis of lateral compartmen t and mild osteoarthritis of medial and patellofemoral compartments. No knee joint effusion. IMPRESSION: 1. Severe right knee osteoarthritis. Reviewed, dictated and finalized at location A.
--- NOTE | ~2023-09-16 | XR_ITS ---
EXAMINATION: XR knee LT min 4V DATE: 09/16/2023 16:21 INDICATION: Bilateral primary osteoarthritis of knee. TECHNIQUE: 4 views of left knee including standing views were obtained. COMPARISON: Left knee radiographs 09/13/2022 FINDINGS: Bone alignment is normal. No fracture. There is mild tricompartmental osteoarthritis charac terized by tiny osteophytes. No knee joint effusion. IMPRESSION: 1. Mild left knee osteoarthritis. Reviewed, dictated and finalized at location A.
== END 2023-09-16 15:44 | disposition home or self-care (01) ==
LOC: ANHIMG 15:53
PROVIDERS: PCP Family Medicine; Visit Provider Orthopaedic Surgery
DX: M17.0 Bilateral primary osteoarthritis of knee (principal)
CPT/HCPCS: 73564

== ENCOUNTER 2024-01-06 09:36 | Outpatient (CLI) | payer BC, SELFPAY ==
--- NOTE | ~2024-01-06 | CT_ITS ---
CT Scan of the Chest without Contrast: Clinical Indication: Solitary pulmonary nodule Technique: Contiguous sections were acquired throughout the chest without intravenous contrast. Dose reduction technique was used on this scan by utilizing automated exposure control and iterative recon struction technique. The dose-length product (DLP) was 93.76 mGy-cm. COMPARISON: 01/05/2023 Findings: There is no evidence of any significant mediastinal, hilar or axillary lymphadenopathy. The mediastin al soft tissues appear normal. There is no evidence of pleural or pericardial effusion. Stable bilobed right middle lobe pulmonary nodule measuring up to 12 mm in maximum diameter. Stable a nteromedial right middle lobe pulmonary nodule measuring 8 mm in diameter. Images through the upper abdomen reveal stable right adrenal nodule, likely adenoma. Impression: Stable right middle lobe pulmonary nodules, as detailed above. Reviewed, dictated and finalized at location . Impression: Stable right middle lobe pulmonary nodules, as detailed above.
== END 2024-01-06 09:37 | disposition home or self-care (01) ==
LOC: ANHIMG 09:40
PROVIDERS: PCP Family Medicine; Visit Provider Internal Medicine Pulmonary Disease
DX: R91.1 Solitary pulmonary nodule (principal); R91.8 Other nonspecific abnormal finding of lung field
CPT/HCPCS: 71250

== ENCOUNTER 2024-04-16 11:33 | Outpatient (CLI) | payer BC, SELFPAY ==
--- NOTE | ~2024-04-16 | XR_ITS ---
Right Knee Technique: AP, lateral, and sunrise views were obtained. Clinical History: Pain Findings: No fracture or dislocation is seen. Osseous alignment is anatomic. There is advanced degene rative change of the lateral compartment. There is moderate degenerative change of the medial compart ment. There is minimal degenerative change of the patellofemoral compartment. Soft tissues are unrema rkable. No joint effusion is seen. Impression: Tricompartmental degenerative change, as detailed above, worst at the lateral compartment. Reviewed, dictated and finalized at location M. Impression: Tricompartmental degenerative change, as detailed above, worst at the lateral c ompartment.
== END 2024-04-16 11:34 | disposition home or self-care (01) ==
LOC: MICIMG 11:35
PROVIDERS: PCP Family Medicine; Visit Provider Orthopaedic Surgery
DX: M17.0 Bilateral primary osteoarthritis of knee (principal)
CPT/HCPCS: 73564

== ENCOUNTER 2024-05-28 09:50 | Outpatient (CLI) | payer BC, SELFPAY ==
[2024-05-28 10:12] LABS: Hematocrit 39.6 % (37.0-47.0); Hemoglobin 13.3 g/dL (12.0-15.0); Mean Corpuscular HGB Conc 33.6 g/dl (32-36); Mean Corpuscular Hemoglobin 34.7 pg (26-34); Mean Corpuscular Volume 103.4 fl (80-100); Mean Platelet Volume 9.5 fl (7.4-10.4); Platelet Count Result 294 k/mm3 (150-375); Red Blood Count 3.83 M/mm3 (4.2-5.4); Red Cell Distribution Width 13.3 % (11.5-14.5); White Blood Count 7.4 K/mm3 (4.5-10.0)
[2024-05-28 10:30] LABS: Alanine Aminotransferase 31 U/L (6-35); Albumin Level 4.5 g/dL (3.5-5.1); Alkaline Phosphatase 75 U/L (38-126); Anion Gap 9 mmol/L (4-12); Aspartate Amino Transferase 41 U/L (14-36); Bilirubin,Total 0.7 mg/dL (0.2-1.3); Blood Urea Nitrogen 11 mg/dL (7-17); Calcium 9.4 mg/dL (8.4-10.2); Carbon Dioxide 29 mmol/L (22-30); Chloride 97 mmol/L (98-107); Cholesterol 257 mg/dL (0-200); Estimated Glomerular Filt Rate > 60; Glucose 92 mg/dL (65-110); Potassium 4.4 mmol/L (3.4-5.0); Sodium 135 mmol/L (137-145); Triglycerides 73 mg/dL (<150)
[2024-05-28 10:35] LABS: LDL Cholesterol Direct 111 mg/dL
[2024-05-28 10:42] LABS: HDL Direct 117 mg/dL
== END 2024-05-28 09:51 | disposition home or self-care (01) ==
LOC: ANHLAB 09:52
PROVIDERS: PCP Family Medicine; Visit Provider Physician Assistant
DX: D64.9 Anemia, unspecified (principal); E78.2 Mixed hyperlipidemia; K21.9 Gastro-esophageal reflux disease without esophagitis
CPT/HCPCS: 36415; 80053; 80061; 85027

== ENCOUNTER 2024-05-29 08:50 | Outpatient (CLI) | payer BC, SELFPAY ==
[2024-05-29 09:28] LABS: Iron 65 ug/dL (37-170)
[2024-05-29 09:37] LABS: Percent Iron Saturation 22 % (20-50)
== END 2024-05-29 08:51 | disposition home or self-care (01) ==
LOC: ANHLAB 08:52
PROVIDERS: PCP Family Medicine; Visit Provider Physician Assistant
DX: D64.9 Anemia, unspecified (principal)
CPT/HCPCS: 36415; 82607; 83540; 83550

== ENCOUNTER 2024-07-25 15:51 | Outpatient (CLI) | payer BC, SELFPAY ==
--- NOTE | ~2024-07-25 | CT_ITS ---
EXAMINATION: CT LE RT wo con DATE: 07/25/2024 16:13 INDICATION: Right knee osteoarthritis. Preoperative planning. TECHNIQUE: Computed tomography (CT) of the right lower limb was performed without intravenous contras t. Automated exposure control and iterative reconstruction technique were employed. The dose-length p roduct was 1869.83 mGy-cm. COMPARISON: Right knee radiograph 04/16/2024 FINDINGS: Alignment is normal. No fracture. There is mild right hip osteoarthritis. The knee demonstr ates mild osteoarthritis of patellofemoral compartment and moderate osteoarthritis of medial and late ral compartments. There is a small knee joint effusion. IMPRESSION: 1. Moderate right knee osteoarthritis. 2. Small right knee joint effusion. 3. Mild right hip osteoarthritis. Reviewed, dictated and finalized at location B. EWAY OPERATOR
== END 2024-07-25 15:52 | disposition home or self-care (01) ==
PROVIDERS: PCP Family Medicine; Visit Provider Orthopaedic Surgery
DX: M17.11 Unilateral primary osteoarthritis, right knee (principal); M25.461 Effusion, right knee; M16.11 Unilateral primary osteoarthritis, right hip
CPT/HCPCS: 73700

== ENCOUNTER 2024-07-25 16:17 | Outpatient (CLI) | payer BC, SELFPAY ==
[2024-07-25 16:48] LABS: Hematocrit 37.2 % (37.0-47.0)
[2024-07-25 17:03] LABS: Albumin Level 4.2 g/dL (3.5-5.1); Estimated Glomerular Filt Rate > 60; Glucose 95 mg/dL (65-110)
== END 2024-07-25 16:18 | disposition home or self-care (01) ==
LOC: ANHLAB 16:18
PROVIDERS: PCP Family Medicine; Visit Provider Orthopaedic Surgery
DX: E78.2 Mixed hyperlipidemia (principal); E53.8 Deficiency of other specified B group vitamins; M17.11 Unilateral primary osteoarthritis, right knee
CPT/HCPCS: 36415; 82040; 82565; 82947; 85014; 85018

== ENCOUNTER 2024-07-30 08:28 | Outpatient (CLI) | payer BC, SELFPAY ==
--- NOTE | 2024-07-30 08:56 | ECG_ITS ---
Test Date: 2024-07-30 09:05:10 Measurements Intervals [place] Rate: 111 P: 47 UT: 126 QRS: 36 QRSD: 78 T: 64 QT: 310 QTc: 422 Interpretive Statements SINUS TACHYCARDIA POSSIBLE LEFT ATRIAL ENLARGEMENT [-0.1mV P-WAVE IN V1/V2] NONSPECIFIC ST & T-WAVE ABNORMALITY ABNORMAL RHYTHM ECG No previous ECG available for comparison Electronically Signed On 07-30-2024 21:18:06 ERP ENGINEER by Heidi Cornell M.D.
== END 2024-07-30 08:29 | disposition home or self-care (01) ==
PROVIDERS: PCP Family Medicine; Visit Provider Orthopaedic Surgery
DX: R00.0 Tachycardia, unspecified (principal); R94.31 Abnormal electrocardiogram [ECG] [EKG]
CPT/HCPCS: 93005

== ENCOUNTER 2024-10-24 08:20 | Outpatient (CLI) | payer BC, SELFPAY ==
[2024-10-24 09:55] LABS: Basophils Percent Auto 0.6 % (0.2-1.2); Eosinophils Absolute Auto 0.1 K/mm3 (0-0.3); Eosinophils Percent Auto 1.7 % (0-4.4); Hematocrit 37.2 % (37.0-47.0); Hemoglobin 11.5 g/dL (12.0-15.0); Immature Granulocyte Absolute 0.02 K/mm3 (0.00-0.031); Immature Granulocyte Percent A 0.3 % (0-0.5); Lymphocytes Absolute Auto 1.53 K/mm3 (0.9-3.2); Lymphocytes Percent Auto 23.6 % (18.3-44.2); Mean Corpuscular HGB Conc 30.9 g/dl (32-36); Mean Corpuscular Volume 106.9 fl (80-100); Mean Platelet Volume 10.1 fl (7.4-10.4); Monocytes Absolute Auto 0.8 K/mm3 (0.1-0.6); Monocytes Percent Auto 12.5 % (2.6-8.5); Neutrophils Percent Auto 61.3 % (45.5-73.1); Platelet Count Result 271 k/mm3 (150-375); Red Blood Count 3.48 M/mm3 (4.2-5.4); Red Cell Distribution Width 13.1 % (11.5-14.5); White Blood Count 6.5 K/mm3 (4.5-10.0)
[2024-10-24 10:15] LABS: Albumin Level 4.3 g/dL (3.5-5.1)
[2024-10-24 10:16] LABS: Platelet Estimate Adequate (Adequate); Schistocytes None Seen
[2024-10-24 10:18] LABS: Urine Cotinine NEGATIVE
[2024-10-24 10:33] LABS: Anion Gap 9 mmol/L (4-12); Blood Urea Nitrogen 10 mg/dL (7-17); Calcium 9.4 mg/dL (8.4-10.2); Carbon Dioxide 28 mmol/L (22-30); Chloride 103 mmol/L (98-107); Estimated Glomerular Filt Rate > 60; Glucose 99 mg/dL (65-110); Sodium 140 mmol/L (137-145)
[2024-10-24 11:05] LABS: MRSA (PCR) NOT DETECTED (NOT DETECTE)
[2024-10-24 11:21] LABS: Hemoglobin A1C 5.3 % (<5.7)
== END 2024-10-24 08:21 | disposition home or self-care (01) ==
LOC: ANHSURGERY 08:24
PROVIDERS: Anesthesiology; PCP Family Medicine; Visit Provider Orthopaedic Surgery
DX: Z01.818 Encounter for other preprocedural examination (principal); M17.11 Unilateral primary osteoarthritis, right knee; I10 Essential (primary) hypertension
CPT/HCPCS: 36415; 80048; 80307; 82040; 83036; 85025; 87641

== ENCOUNTER 2024-11-23 16:10 | Observation (INO) | payer BC, SELFPAY ==
--- NOTE | 2024-10-24 08:23 | PC.NURSE ---
Report to the Outpatient Waiting Room, entrance under the green pavilion located off [facility], at time ___6:00am____ on date ___11/22/24____. Planned Procedure Time: ___7:30am .? Time changes happen often and if your time is changed the preop area will call you the afternoon before. - You and your visitor will be asked to self-screen and do not enter if you have any COVID symptoms. Please call surgeon if you need to reschedule. - A mask is optional within the hospital at this time. Patients may have clear liquids (water, carbonated beverages, clear teas, apple juice) until 3 hours prior to surgery (4:30AM) with a maximum of 20 ounces. - No food from midnight until time of surgery and no smoking, or chewing tobacco (or any form of nicotine). No chewing gum, candy or mints. Take only the following medications with a SIP of water on the morning of surgery: NONE DO NOT STOP ANY OF YOUR OTHER PRESCRIPTION MEDICATIONS PRIOR TO SURGERY EXCEPT THE FOLLOWING Hold all vitamins and supplements for 3 days per anesthesiologist.- LAST DOSE 11/18/24 Please no make-up, nail iraqi, hairspray, perfume, deodorant, or body powder the day of surgery.? No jewelry (including any body piercings) or valuables the day of surgery, leave them at home.? Please take a shower or bath the night before, or the morning of, surgery with an antibacterial soap.? Wear comfortable, loose fitting clothing.? - Jewelry must be removed prior to entering the operating room.? Rings and piercings that are not removed may be cut off. - The hospital will not accept responsibility for valuables.? - Please leave all valuables, including medications, at home the day of surgery. If you are going home after surgery, a licensed mail truck driver must drive you home.? - NO public transportation without another adult if you receive anesthesia. - We recommend that an adult stay with you for 24 hours following discharge. - We also recommend that you do not drive, make important decision, drink alcoholic beverages, or take any drugs that were not prescribed by your health care provider for at least 24 hours after your discharge time. Follow any additional instructions given to you from your surgeon. Telephone instructions given to ___PATIENT and asked if any additional questions and then verbalized understanding. Patient advised to call surgeon office or pre surgery nurse liaison [phone] if any additional questions.
[2024-10-24 08:34] VITALS: BP 141/82; PULSE 93; RESP 16; TEMP 37.2; O2SAT 100; BMI 28.8
[2024-11-22] VITALS (14 sets, daily range): BP systolic 101–134; BP diastolic 69–87; PULSE 81–104; RESP 12–16; TEMP 36.1–36.8; O2SAT 95–99; BMI 28.0
[2024-11-22] MEDS: ACETAMINOPHEN 500 MG TABLET 1000 MG PO (06:30)
--- NOTE | 2024-11-22 06:58 | WPDHPUPDATE1 ---
History and Physical Update Update Date/Time: 11/22/24 06:58 History and Physical has been reviewed, including an updated exam of the patient. There are NO changes in the patient's condition. Risks, benefits, and alternatives have been discussed and questions answered. Patient agrees to proceed with procedure.
[2024-11-22] MEDS: TRANEXAMIC ACID 1,000MG/ISO100 1,000 MG/100 ML BAG 200 MG IVPB (07:15)
[2024-11-22] MEDS: LACTATED RINGERS 1,000 ML 30 ML IV CONT ×2 (07:21→09:26)
--- NOTE | 2024-11-22 07:22 | P.PNAN_ITS ---
Anes - Initial Pre Proc Eval Procedure: Operation Date: 11/22/24 07:30 Proposed Procedures p Right Custom Total Knee Arthroplasty - Julio Islas MD Date/Time: 11/22/24 07:22 Surgeon: Julio Islas MD Pre Op Diagnosis: Prim O A Rt Knee Patient Data Age: 64 Gender: F Height: 1.63 m Weight: 74.2 kg Last Vital Signs Temp 97.2 F L 11/22/24 07:18 Pulse 104 H 11/22/24 07:18 Resp 16 10/24/24 08:34 BP 134/84 11/22/24 07:18 Pulse Ox 98 11/22/24 07:18 O2 Del Method Room Air 11/22/24 07:18 Allergies Allergy/AdvReac Type Severity Reaction Status Date / Time No Known Allergies Allergy Verified 11/22/24 07:16 Home Medications ?Medication ?Instructions ?Recorded ?Confirmed ?Type Adults Multivitamin 1 tab-cap PO DAILY 04/17/20 10/24/24 History loratadine 10 mg tablet (Claritin) 10 mg PO DAILY PRN allergy symptoms 04/17/20 11/22/24 History acetaminophen 650 mg 1,300 mg PO Q12H PRN pain 04/02/24 11/22/24 History tablet,extended release (Tylenol Arthritis Pain) hydrochlorothiazide 12.5 mg capsule See Rx Instructions .Route 10/24/24 11/22/24 Rx .COMPLEX #100 caps lisinopril 30 mg tablet See Rx Instructions .Route 10/24/24 11/22/24 Rx .COMPLEX #90 tabs multivitamin (Daily Multi-Vitamin 1 tablet PO DAILY 10/24/24 11/22/24 History tablet) omeprazole 20 mg capsule,delayed 20 mg PO DAILY 10/24/24 11/22/24 History release Patient hx anesthesia problems: none Family hx anesthesia problems: none Results Review: All pre-operative results and documents have been reviewed as part of the pre- operative evaluation. [facility] Past Medical History Medical History Knee pain, bilateral Esophageal ring Abnormal CXR Dysphagia Supraclavicular fossa fullness Mixed hyperlipidemia Mass of ovary Fibroids, subserous Essential (primary) hypertension Elevated BP without diagnosis of hypertension Cutaneous abscess of unspecified hand Cellulitis and abscess of finger, unspecified Bulky or enlarged uterus Adnexal mass Abnormal colonoscopy 2019, repeat in 5 years. Psychophysiologic insomnia Blood glucose elevated Adenomatous colon polyp Breast cancer screening Colon cancer screening Benign essential HTN Diverticulosis HTN (hypertension) Surgical History Surgical History Hx of colonoscopy with polypectomy [place] teeth removed History of total abdominal hysterectomy and bilateral salpingo-oophorectomy 01/10/2019 Family History Family History Mother Hypertension Patient's mother is in good health Father Carcinoma of colon Family history of malignant neoplasm, Onset Age: 72 Sibling Patient's sister is in good health Patient's brother is in good health Status post surgical removal of malignant neoplasm of skin Social History Social History Social History: Single Smoking status: Never smoker Second hand tobacco smoke exposure: No Alcohol intake: current Drinks per week: 7 Alcohol use details: one glass of wine daily Substance use: never Substance use type: does not use Do You Feel Safe in your Home?: Yes Lack of Transportation: No Lack of Food: Never True Current Housing: I Have Housing Concerned About Future Housing: No Difficulty Paying Gas/Electric Bills: No Difficulty Paying for Meds: No Currently Unemployed: No Education: Master's Degree or Higher Difficulty w/ Childcare or Family Care: No Living arrangements: alone Occupation/Education: occupation Gender identity (if verbalized by the patient): Female Sexual Orientation (if Verbalized by the Patient): Straight or Heterosexual Spiritual care concerns: No Anes - Eval Final PreProcedure Day of Procedure 11/22/24 07:22 Patient weight: normal Heart: regular rate and rhythm Lungs: clear to auscultation Airway: Mallampati scale class II Neurological: alert and oriented Last oral intake: >/= 8 hours ASA classification: III Emergent: no Anesthetic plan: proceed Anesthesia type and monitoring: general LMA and standard monitoring Results Review: All pre-operative results and documents have been reviewed as part of the pre- operative evaluation. Informed Consent: The patient's anesthetic plan and its attendant risks and benefits were discussed with the patient/family/POA. Questions were solicited and answers provided to the satisfaction of the patient/family/POA.
[2024-11-22] MEDS: ceFAZolin 2 GM/D5W 50 ML 2 GM/50 ML BAG IVPB ×3 (07:29→23:13)
[2024-11-22] MEDS: SODIUM CHLORIDE 0.9% IV 37.7 ML, MORPHINE SULFATE INJ (*CRX) 2 MG, ROPivacaine HCL 1% 2... INFILTRATE (08:09)
--- NOTE | 2024-11-22 09:08 | W.PM.PROC2 ---
Procedure Note - Detailed Date of Procedure 11/22/24 Pre-op Diagnosis Right knee degenerative arthritis. Post-op Diagnosis Same Procedure Performed Custom total knee arthroplasty, right. Surgeon Julio Islas MD Activity Specialist Solange Ayon PA-C Anesthesia General Findings Good bone quality. No releases required. Custom implant optimal fit. Description of Procedure Preoperative antibiotics were given. The limb was prepped and draped in the usual sterile fashion with a well-padded tourniquet high on the thigh. The limb was exsanguinated and the tourniquet inflated to 300 mmHg during exposure. A longitudinal incision was created just medial to the patella. A trivector approach to the knee was performed. Arthrotomy was taken down through the joint capsule. No significant releases were initially taken. The femur was exposed and the F1 jig was applied. The coring tool was used to remove the cartilage for the F2 jig to sit flush with the bone. The jig was pinned and the distal cut carefully taken. Caliper measurements confirmed appropriate bony resections according to the preoperative templated plan. The F4 cutting jig for the femur was applied, at the standard rotation. The AP and anterior chamfer cuts were taken. The F5 jig was applied and the posterior chamfer cuts were taken. The tibia was prepared using the T1 jig, after removing cartilage for the jig contact points. Proper alignment was checked with the alignment brianna. The tibia was cut using the T1u guide. Gap balancing was performed. Gap measurements were taken and the knee was trialed. Excellent alignment and soft tissue balancing was confirmed. The posterior cruciate ligament was recessed along the proximal tibia. The patella was cut for resurfacing. Three lug holes were drilled. Meniscal remnants were removed. The trial components were assembled. Excellent range of motion and proper soft tissue balancing were confirmed throughout the full range of motion. Patellar tracking was excellent. The knee was copiously irrigated periodically throughout the procedure. The real implants were cemented into position. Excess cement was carefully removed. The wound was closed in layers with interrupted #1 Vicryl suture, 2-0 strata fix suture, 0 strata fix suture, 2-0 strata fix suture. Steri-Strips placed on the skin with the knee flexed. Sterile bulky dressing applied. The patient was brought to the recovery room in stable condition. There were no complications. Physician lead assistant manager, Solange Ayon PA-C, required for surgery; including patient positioning, draping, tissue retraction, maintaining instrument position, wound closure, and dressing placement. Implants Conformis Custom total knee arthroplasty. Cemented. Cruciate retaining. 7B insert. 35 mm oval patella. Estimated Blood Loss 50 Drains No Complications No immediate complications Condition Stable Disposition PACU [facility] Billing Surgery - Charge Forward: Surgery Billing
[2024-11-22] MEDS: fentaNYL CITRATE INJ (*CRX) 100 MCG/2 ML VIAL 25 MCG IV PUSH ×5 (09:34→10:06)
[2024-11-22] MEDS: HYDROmorphone HCL INJ (*CRX) 1 MG/ML SYR 0.5 MG IV PUSH ×4 (10:11→10:36)
--- NOTE | 2024-11-22 11:05 | ADMGEN ---
This patient, Ana Diaz, was admitted to 3 Med Surg Room 309-01. Patient/family oriented to hospital policies and general routines including ID bracelet, bed and alarms, visiting hours, pain management, procedures, bathroom and other care routines, personal items, smoking policy, room service/diet, and visiting hours. Information on how to activate the Rapid Response Team has been discussed. Patient/Family are encouraged to report perceived risks to care and to ask questions if they do not understand what they are told or what they should do.
[2024-11-22] MEDS: polyethylene glycoL 3350 17 GM POWD.PACK PO (11:21)
[2024-11-22] MEDS: ACETAMINOPHEN 325 MG TABLET 650 MG PO ×2 (11:21→17:32)
[2024-11-22] MEDS: traMADol HCL (*CRX) 50 MG TABLET PO (11:21)
[2024-11-22] MEDS: MELOXICAM 7.5 MG TABLET PO ×2 (11:21→16:04)
[2024-11-22] MEDS: SENNA/DOCUSATE SODIUM TABLET 2 TAB PO ×2 (11:21→16:04)
[2024-11-22] MEDS: FAMOTIDINE 20 MG TABLET PO ×2 (11:22→20:39)
[2024-11-22] MEDS: hydroCHLOROthiazide 12.5 MG CAPSULE PO (11:22)
[2024-11-22] MEDS: ASPIRIN 81 MG ENTERIC TABLET PO ×2 (11:22→20:39)
[2024-11-22] MEDS: PANTOPRAZOLE 40 MG TABLET PO (11:22)
[2024-11-22] MEDS: SODIUM CHLORIDE 0.9% IV 1,000 ML 125 ML IV CONT (11:42)
[2024-11-22] MEDS: lisinopriL 10 MG TABLET 30 MG PO (11:42)
[2024-11-22] MEDS: predniSONE 5 MG TABLET PO (16:04)
--- NOTE | ~2024-11-23 | XR_ITS ---
[id number] Ordering provider: Julio Islas MD History: . POST-OP, RIGHT CUSTOM TKA . Comparison: None. FINDINGS: BONES: No acute fracture or dislocation. JOINT SPACES: Total knee arthroplasty. SOFT TISSUES: Postoperative changes in the subcutaneous tissues. IMPRESSION: No acute osseous abnormality right knee. Total knee arthroplasty with postoperative changes in the subcutaneous tissues.. Reviewed, dictated and finalized at location A. IMPRESSION: No acute osseous abnormality right knee. Total knee arthroplasty with postoperative changes in the subcutaneous tissues. .
[2024-11-23] MEDS: ACETAMINOPHEN 325 MG TABLET 650 MG PO ×5 (00:08→23:24)
[2024-11-23 00:09] VITALS: BP 98/62; PULSE 81; RESP 16; TEMP 36.8; O2SAT 98
[2024-11-23 04:28] VITALS: BP 100/70; PULSE 85; RESP 20; TEMP 36.6; O2SAT 98
[2024-11-23 05:32] LABS: Basophils Percent Auto 0.2 % (0.2-1.2); Eosinophils Percent Auto 0.1 % (0-4.4); Hematocrit 30.5 % (37.0-47.0); Hemoglobin 9.7 g/dL (12.0-15.0); Immature Granulocyte Absolute 0.03 K/mm3 (0.00-0.031); Immature Granulocyte Percent A 0.3 % (0-0.5); Lymphocytes Absolute Auto 1.14 K/mm3 (0.9-3.2); Lymphocytes Percent Auto 10.9 % (18.3-44.2); Mean Corpuscular HGB Conc 31.8 g/dl (32-36); Mean Corpuscular Hemoglobin 33.1 pg (26-34); Mean Corpuscular Volume 104.1 fl (80-100); Mean Platelet Volume 9.6 fl (7.4-10.4); Monocytes Absolute Auto 0.9 K/mm3 (0.1-0.6); Monocytes Percent Auto 8.6 % (2.6-8.5); Neutrophils Absolute Auto 8.4 K/mm3 (1.3-6.7); Neutrophils Percent Auto 79.9 % (45.5-73.1); Platelet Count Result 238 k/mm3 (150-375); Red Blood Count 2.93 M/mm3 (4.2-5.4); Red Cell Distribution Width 12.2 % (11.5-14.5); White Blood Count 10.5 K/mm3 (4.5-10.0)
[2024-11-23 05:42] LABS: Anion Gap 7 mmol/L (4-12); Blood Urea Nitrogen 26 mg/dL (7-17); Calcium 8.3 mg/dL (8.4-10.2); Carbon Dioxide 23 mmol/L (22-30); Chloride 98 mmol/L (98-107); Estimated CRCL calculation 42 ml/min; Estimated Glomerular Filt Rate 45; Glucose 111 mg/dL (65-110); Potassium 4.2 mmol/L (3.4-5.0); Sodium 128 mmol/L (137-145)
[2024-11-23] MEDS: ceFAZolin 2 GM/D5W 50 ML 2 GM/50 ML BAG IVPB (06:02)
[2024-11-23] MEDS: PANTOPRAZOLE 40 MG TABLET PO (08:08)
[2024-11-23] MEDS: lisinopriL 10 MG TABLET 30 MG PO (08:08)
[2024-11-23] MEDS: oxyCODONE/ACETAMINOPHEN (*CRX) 10-325 MG TABLET 1 TAB PO (08:08)
[2024-11-23] MEDS: FAMOTIDINE 20 MG TABLET PO ×2 (08:08→20:12)
[2024-11-23] MEDS: ASPIRIN 81 MG ENTERIC TABLET PO ×2 (08:09→20:12)
[2024-11-23] MEDS: hydroCHLOROthiazide 12.5 MG CAPSULE PO (08:09)
--- NOTE | 2024-11-23 08:22 | P.PNOP_ITS ---
Progress Note: A&P Assessment and Plan (1) Status post total right knee replacement: Code(s): Z96.651 - Presence of right artificial knee joint Status: Acute (2) Hyponatremia: Code(s): E87.1 - Hypo-osmolality and hyponatremia Status: Acute Plan Postop day 1: Right total knee arthroplasty. Patient tolerated procedure well. Pain manageable with pain medication. No numbness or tingling. She will work with PT/OT today. She does have a low sodium level on her labs this AM. She states she has had an issue with her sodium in the past because she drinks a lot of water. I advised her to eat saltier foods today. Will recheck labs this afternoon. I also consulted the hospitalist. Hopefully this improves and she can still be discharged today. Kidney function also decreased slightly. I stopped her Meloxicam and advised her against NSAIDs. Subjective Subjective Date/Time Seen: 11/23/24 08:22 Interval history: Patient resting comfortably. Walking with walker. Notes pain has increased. Review of Systems Review of Systems: All systems reviewed & are unremarkable except as noted in HPI and below Exam Narrative: 64-year-old. Resting comfortably in chair. Alert and oriented x3. No acute distress. Not wearing compression socks. (advised her to put them back on to decrease risk of blood clot) Dressing intact with no drainage. Mild swelling. No ecchymosis. No erythema. No hematoma. No warmth. Range of motion limited due to pain. Calf nontender. Neurologic status intact. No varicosities. Distal pulses palpable. Light touch sensation intact. Good capillary refill. Objective Data Vital Signs Vital Signs: Vital Signs - 24 hr 11/22/24 09:26 11/22/24 09:40 11/22/24 09:55 Temperature 98.0 F Pulse Rate 101 H 95 90 Respiratory Rate 15 14 12 Blood Pressure 123/80 102/87 108/73 Pulse Oximetry 99 99 99 Oxygen Delivery Simple Face Mask Simple Face Mask Simple Face Mask Oxygen Flow Rate 8 8 8 11/22/24 10:10 11/22/24 10:25 11/22/24 10:40 Temperature Pulse Rate 85 87 83 Respiratory Rate 12 14 16 Blood Pressure 117/85 122/73 110/84 Pulse Oximetry 97 95 Oxygen Delivery Nasal Cannula Room Air Nasal Cannula Oxygen Flow Rate 2 2 11/22/24 11:04 11/22/24 11:19 11/22/24 11:49 Temperature 97.0 F L 97.0 F L 97.0 F L Pulse Rate 88 85 90 Respiratory Rate 16 16 16 Blood Pressure 116/77 111/73 111/77 Pulse Oximetry 95 95 97 Oxygen Delivery Oxygen Flow Rate 11/22/24 11:55 11/22/24 12:49 11/22/24 15:05 Temperature 97.0 F L Pulse Rate 85 Respiratory Rate 16 Blood Pressure 114/78 Pulse Oximetry 97 98 Oxygen Delivery Nasal Cannula Room Air Oxygen Flow Rate 2 11/22/24 17:51 11/22/24 20:28 11/23/24 00:09 Temperature 97.1 F L 98.3 F 98.2 F Pulse Rate 86 81 81 Respiratory Rate 16 16 16 Blood Pressure 110/69 101/75 98/62 L Pulse Oximetry 97 96 98 Oxygen Delivery Oxygen Flow Rate 11/23/24 04:28 Temperature 97.8 F Pulse Rate 85 Respiratory Rate 20 Blood Pressure 100/70 Pulse Oximetry 98 Oxygen Delivery Oxygen Flow Rate Intake/Output Intake/Output: Intake & Output 11/20/24 11/21/24 11/22/24 11/23/24 23:59 23:59 23:59 23:59 Intake Total 1390 50 Balance 1390 50 Meds/Results Medications: Active Medications Generic Name Dose Route Start Last Admin Trade Name Freq PRN Reason Stop Dose Admin Acetaminophen 650 mg 11/22/24 12:00 11/23/24 06:02 Acetaminophen 325 Mg Tablet PO 650 mg Q6HR BRITTANEY Administration Aspirin 81 mg 11/22/24 10:43 11/23/24 08:09 Aspirin 81 Mg Enteric Tablet PO 81 mg Q12HR BRITTANEY Administration Cyclobenzaprine HCl 10 mg 11/22/24 10:43 Cyclobenzaprine Hcl 10 Mg Tablet PO Q8H PRN Spasms Diphenhydramine HCl 25 mg 11/22/24 10:43 Diphenhydramine Hcl Inj 50 Mg/Ml Vial IV PUSH Q6H PRN Itching Famotidine 20 mg 11/22/24 10:43 11/23/24 08:08 Famotidine 20 Mg Tablet PO 20 mg Q12HR BRITTANEY Administration Hydrochlorothiazide 12.5 mg 11/22/24 10:43 11/23/24 08:09 Hydrochlorothiazide 12.5 Mg Capsule PO 12.5 mg QAM BRITTANEY Administration Hydromorphone HCl 1 mg 11/22/24 10:43 Hydromorphone Hcl Inj (*Crx) 1 Mg/Ml Syr IV PUSH Q2H PRN Breakthrough Pain Rated 7-10 or NPO Hydromorphone HCl 0.5 mg 11/22/24 10:43 Hydromorphone Hcl Inj (*Crx) 1 Mg/Ml Syr IV PUSH Q2H PRN Breakthrough Pain Rated 4-6 or NPO Lisinopril 30 mg 11/22/24 11:05 11/23/24 08:08 Lisinopril 10 Mg Tablet PO 30 mg QAM [facility]ITATNEY Administration Loratadine 10 mg 11/22/24 10:43 Loratadine 10 Mg Tablet PO DAILY PRN allergy symptoms Naloxone HCl 0.1 mg 11/22/24 10:43 Naloxone Hcl 0.4 Mg/Ml Vial IV PUSH Q2M PRN Opiate Reversal Ondansetron HCl 4 mg 11/22/24 10:43 Ondansetron Inj 4 Mg/2 Ml Vial IV PUSH Q4H PRN Nausea And Vomiting Oxycodone/Acetaminophen 1 tablet 11/22/24 10:43 Oxycodone/Acetaminophen (*Crx) 5-325 Mg Tablet PO Q4H PRN Pain Rated 4-6 Oxycodone/Acetaminophen 1 tab 11/22/24 10:43 11/23/24 08:08 Oxycodone/Acetaminophen (*Crx) 10-325 Mg Tablet PO 1 tab Q6H PRN Administration Pain Rated 7-10 Pantoprazole Sodium 40 mg 11/22/24 10:43 11/23/24 08:08 Pantoprazole 40 Mg Tablet PO 12/22/24 10:42 40 mg DAILY BRITTANEY Administration Polyethylene Glycol 17 gm 11/22/24 10:43 11/23/24 08:10 Polyethylene Glycol 3350 17 Gm Powd.Pack PO Not Given QAM BRITTANEY Prednisone 5 mg 11/22/24 17:00 11/22/24 16:04 Prednisone 5 Mg Tablet PO 5 mg DAILY@1700 BRITTANEY Administration Senna/Docusate Sodium 2 tab 11/22/24 10:43 11/23/24 08:10 Senna/Docusate Sodium Tablet PO Not Given BID BRITTANEY Tramadol HCl 50 mg 11/22/24 10:43 11/22/24 11:21 Tramadol Hcl (*Crx) 50 Mg Tablet PO 50 mg Q4H PRN Administration Pain Rated 1-3 Radiology Results: ITS Impressions Knee X-Ray 11/22/24 10:40 IMPRESSION: No acute osseous abnormality right knee. Total knee arthroplasty with postoperative changes in the subcutaneous tissues.. Labs Labs: Laboratory Results - last 24 hr 11/23/24 05:23 WBC 10.5 H RBC 2.93 L Hgb 9.7 L Hct 30.5 L MCV 104.1 H MCH 33.1 MCHC 31.8 L RDW 12.2 Plt Count 238 MPV 9.6 Immature Gran % (Auto) 0.3 Neut % (Auto) 79.9 H Lymph % (Auto) 10.9 L [place] % (Auto) 8.6 H Eos % (Auto) 0.1 Baso % (Auto) 0.2 Lymph # (Auto) 1.14 [place] # (Auto) 0.9 H Eos # (Auto) 0.0 Baso # (Auto) 0.0 Abs Immat Gran (auto) 0.03 Absolute Neuts (auto) 8.4 H Absolute Nucleated RBC 0.000 Nucleated RBC % 0.0 Sodium 128 L Potassium 4.2 Chloride 98 Carbon Dioxide 23 Anion Gap 7 BUN 26 H D Creatinine 1.22 H Estim Creat Clear Calc 42 Estimated GFR 45 L Glucose 111 H Calcium 8.3 L
[2024-11-23 08:28] VITALS: BP 111/77; PULSE 86; RESP 16; TEMP 37.1; O2SAT 100
--- NOTE | 2024-11-23 11:43 | PM.IMPN ---
Progress Note: A&P Assessment and Plan (1) Hyponatremia: Code(s): E87.1 - Hypo-osmolality and hyponatremia Status: Acute (2) Status post total right knee replacement: Code(s): Z96.651 - Presence of right artificial knee joint Status: Acute Plan HypoNa -Asymptomatic HypoNa -TSH pending -if necessary Cortisol will be measured -Possible due to SIADH and dehydration -Euvolemia -Goal 6-8 meq/l in 24 hr period -Urine Na and urine osmolarity pending -held hydrochlorothiazide - Subjective Date/time seen: 11/23/24 11:43 Interval history: Patient was evaluated at bedside. Patient denied any symptoms confusion or dizziness. Medicine team is consulted due to hypoNa. Review of Systems Review of Systems: All systems reviewed & are unremarkable except as noted in HPI and below Exam Narrative: 64-year-old. Resting comfortably in chair. Alert and oriented x3. No acute distress. Not wearing compression socks. (advised her to put them back on to decrease risk of blood clot) Dressing intact with no drainage. Mild swelling. No ecchymosis. No erythema. No hematoma. No warmth. Range of motion limited due to pain. Calf nontender. Neurologic status intact. No varicosities. Distal pulses palpable. Light touch sensation intact. Good capillary refill. Objective Data Vital Signs Vital Signs: Vital Signs - 24 hr 11/22/24 11:49 11/22/24 11:55 11/22/24 12:49 Temperature 97.0 F L 97.0 F L Pulse Rate 90 85 Respiratory Rate 16 16 Blood Pressure 111/77 114/78 Pulse Oximetry 97 97 98 Oxygen Delivery Nasal Cannula Oxygen Flow Rate 2 11/22/24 15:05 11/22/24 17:51 11/22/24 20:28 Temperature 97.1 F L 98.3 F Pulse Rate 86 81 Respiratory Rate 16 16 Blood Pressure 110/69 101/75 Pulse Oximetry 97 96 Oxygen Delivery Room Air Oxygen Flow Rate 11/23/24 00:09 11/23/24 04:28 11/23/24 08:28 Temperature 98.2 F 97.8 F 98.7 F Pulse Rate 81 85 86 Respiratory Rate 16 20 16 Blood Pressure 98/62 L 100/70 111/77 Pulse Oximetry 98 98 100 Oxygen Delivery Oxygen Flow Rate Intake/Output Intake/Output: Intake & Output 11/20/24 11/21/24 11/22/24 11/23/24 23:59 23:59 23:59 23:59 Intake Total 1390 50 Balance 1390 50 Meds/Results Medications: Active Medications Generic Name Dose Route Start Last Admin Trade Name Freq PRN Reason Stop Dose Admin Acetaminophen 650 mg 11/22/24 12:00 11/23/24 06:02 Acetaminophen 325 Mg Tablet PO 650 mg Q6HR [facility] Administration Aspirin 81 mg 11/22/24 10:43 11/23/24 08:09 Aspirin 81 Mg Enteric Tablet PO 81 mg Q12HR [facility] Administration Cyclobenzaprine HCl 10 mg 11/22/24 10:43 Cyclobenzaprine Hcl 10 Mg Tablet PO Q8H PRN Spasms Diphenhydramine HCl 25 mg 11/22/24 10:43 Diphenhydramine Hcl Inj 50 Mg/Ml Vial IV PUSH Q6H PRN Itching Famotidine 20 mg 11/22/24 10:43 11/23/24 08:08 Famotidine 20 Mg Tablet PO 20 mg Q12HR [facility] Administration Hydrochlorothiazide 12.5 mg 11/22/24 10:43 11/23/24 08:09 Hydrochlorothiazide 12.5 Mg Capsule PO 12.5 mg QAM [facility] Administration Hydromorphone HCl 1 mg 11/22/24 10:43 Hydromorphone Hcl Inj (*Crx) 1 Mg/Ml Syr IV PUSH Q2H PRN Breakthrough Pain Rated 7-10 or NPO Hydromorphone HCl 0.5 mg 11/22/24 10:43 Hydromorphone Hcl Inj (*Crx) 1 Mg/Ml Syr IV PUSH Q2H PRN Breakthrough Pain Rated 4-6 or NPO Sodium Chloride 1,000 mls @ 75 mls/hr 11/23/24 09:30 Normal Saline Iv IV CONT .[id number] [facility] Lisinopril 30 mg 11/22/24 11:05 11/23/24 08:08 Lisinopril 10 Mg Tablet PO 30 mg QAM [facility] Administration Loratadine 10 mg 11/22/24 10:43 Loratadine 10 Mg Tablet PO DAILY PRN allergy symptoms Naloxone HCl 0.1 mg 11/22/24 10:43 Naloxone Hcl 0.4 Mg/Ml Vial IV PUSH Q2M PRN Opiate Reversal Ondansetron HCl 4 mg 11/22/24 10:43 Ondansetron Inj 4 Mg/2 Ml Vial IV PUSH Q4H PRN Nausea And Vomiting Oxycodone/Acetaminophen 1 tablet 11/22/24 10:43 Oxycodone/Acetaminophen (*Crx) 5-325 Mg Tablet PO Q4H PRN Pain Rated 4-6 Oxycodone/Acetaminophen 1 tab 11/22/24 10:43 11/23/24 08:08 Oxycodone/Acetaminophen (*Crx) 10-325 Mg Tablet PO 1 tab Q6H PRN Administration Pain Rated 7-10 Pantoprazole Sodium 40 mg 11/22/24 10:43 11/23/24 08:08 Pantoprazole 40 Mg Tablet PO 12/22/24 10:42 40 mg DAILY BRITTANEY Administration Polyethylene Glycol 17 gm 11/22/24 10:43 11/23/24 08:10 Polyethylene Glycol 3350 17 Gm Powd.Pack PO Not Given QAM BRITTANEY Prednisone 5 mg 11/22/24 17:00 11/22/24 16:04 Prednisone 5 Mg Tablet PO 5 mg DAILY@1700 BRITTANEY Administration Senna/Docusate Sodium 2 tab 11/22/24 10:43 11/23/24 08:10 Senna/Docusate Sodium Tablet PO Not Given BID BRITTANEY Tramadol HCl 50 mg 11/22/24 10:43 11/22/24 11:21 Tramadol Hcl (*Crx) 50 Mg Tablet PO 50 mg Q4H PRN Administration Pain Rated 1-3 Radiology Results: ITS Impressions Knee X-Ray 11/22/24 10:40 IMPRESSION: No acute osseous abnormality right knee. Total knee arthroplasty with postoperative changes in the subcutaneous tissues.. Labs Labs: Laboratory Results - last 24 hr 11/23/24 05:23 WBC 10.5 H RBC 2.93 L Hgb 9.7 L Hct 30.5 L MCV 104.1 H MCH 33.1 MCHC 31.8 L RDW 12.2 Plt Count 238 MPV 9.6 Immature Gran % (Auto) 0.3 Neut % (Auto) 79.9 H Lymph % (Auto) 10.9 L [place] % (Auto) 8.6 H Eos % (Auto) 0.1 Baso % (Auto) 0.2 Lymph # (Auto) 1.14 [place] # (Auto) 0.9 H Eos # (Auto) 0.0 Baso # (Auto) 0.0 Abs Immat Gran (auto) 0.03 Absolute Neuts (auto) 8.4 H Absolute Nucleated RBC 0.000 Nucleated RBC % 0.0 Sodium 128 L Potassium 4.2 Chloride 98 Carbon Dioxide 23 Anion Gap 7 BUN 26 H D Creatinine 1.22 H Estim Creat Clear Calc 42 Estimated GFR 45 L Glucose 111 H Calcium 8.3 L Hospitalist MIPS Advance Care Plan I have confirmed that the patient's Advanced Care Plan is present, code status is documented, or surrogate decision maker is listed in patient medical record.: Yes Medication Reconciliation I have utilized all available resources to obtain, update and review the patients current medications (includes all prescriptions, OTC, herbals, cannabis, and nutritional supplements).: Yes
[2024-11-23 12:27] LABS: Hematocrit 32.8 % (37.0-47.0); Hemoglobin 10.2 g/dL (12.0-15.0); Mean Corpuscular HGB Conc 31.1 g/dl (32-36); Mean Corpuscular Hemoglobin 32.9 pg (26-34); Mean Corpuscular Volume 105.8 fl (80-100); Mean Platelet Volume 9.7 fl (7.4-10.4); Platelet Count Result 250 k/mm3 (150-375); Red Cell Distribution Width 12.4 % (11.5-14.5); White Blood Count 9.6 K/mm3 (4.5-10.0)
[2024-11-23 12:28] VITALS: BP 100/67; PULSE 87; RESP 18; TEMP 36.2; O2SAT 100
[2024-11-23 12:43] LABS: Albumin Level 3.9 g/dL (3.5-5.1); Anion Gap 10 mmol/L (4-12); Blood Urea Nitrogen 28 mg/dL (7-17); Calcium 8.4 mg/dL (8.4-10.2); Carbon Dioxide 24 mmol/L (22-30); Chloride 98 mmol/L (98-107); Estimated CRCL calculation 40 ml/min; Estimated Glomerular Filt Rate 42; Glucose 87 mg/dL (65-110); Magnesium 1.7 mg/dL (1.6-2.3); Phosphorus 3.3 mg/dL (2.5-4.5); Potassium 3.9 mmol/L (3.4-5.0); Sodium 132 mmol/L (137-145)
[2024-11-23 12:44] LABS: Alanine Aminotransferase 21 U/L (6-35); Albumin Level 3.9 g/dL (3.5-5.1); Alkaline Phosphatase 47 U/L (38-126); Anion Gap 10 mmol/L (4-12); Aspartate Amino Transferase 32 U/L (14-36); Bilirubin,Total 0.4 mg/dL (0.2-1.3); Blood Urea Nitrogen 28 mg/dL (7-17); Calcium 8.4 mg/dL (8.4-10.2); Carbon Dioxide 23 mmol/L (22-30); Chloride 98 mmol/L (98-107); Estimated CRCL calculation 41 ml/min; Estimated Glomerular Filt Rate 43; Glucose 97 mg/dL (65-110); Potassium 3.9 mmol/L (3.4-5.0); Sodium 131 mmol/L (137-145)
[2024-11-23] MEDS: SODIUM CHLORIDE 0.9% IV 1,000 ML 75 ML IV CONT (12:52)
[2024-11-23] MEDS: CYCLOBENZAPRINE HCL 10 MG TABLET PO ×2 (14:59→23:24)
[2024-11-23] MEDS: HYDROmorphone HCL INJ (*CRX) 2 MG/ML VIAL 1 MG IV PUSH ×3 (15:00→23:23)
[2024-11-23] MEDS: HYDROmorphone HCL INJ (*CRX) 2 MG/ML VIAL 0.5 MG IV PUSH (15:53)
[2024-11-23] MEDS: predniSONE 5 MG TABLET PO (17:23)
[2024-11-23] MEDS: oxyCODONE/ACETAMINOPHEN (*CRX) 5-325 MG TABLET 1 TABLET PO (18:55)
[2024-11-23 19:28] LABS: Sodium Urine Random 32 meq/L
[2024-11-23 19:43] LABS: Thyroid Stimulating Hormone Reflex 0.545 uIU/mL (0.465-4.68)
[2024-11-23 20:48] VITALS: BP 90/50; PULSE 84; RESP 16; TEMP 36.6; O2SAT 94
[2024-11-23 21:22] VITALS: PULSE 84; RESP 16; O2SAT 94
[2024-11-24] MEDS: SODIUM CHLORIDE 0.9% IV 1,000 ML 75 ML IV CONT (03:10)
[2024-11-24 05:30] VITALS: BP 109/70; PULSE 96; RESP 16; TEMP 36.6; O2SAT 100
[2024-11-24] MEDS: ACETAMINOPHEN 325 MG TABLET 650 MG PO ×2 (05:44→12:21)
[2024-11-24] MEDS: HYDROmorphone HCL INJ (*CRX) 2 MG/ML VIAL 1 MG IV PUSH (06:30)
--- NOTE | 2024-11-24 07:54 | P.PNIM_ITS ---
Progress Note: A&P Assessment and Plan (1) Hyponatremia: Code(s): E87.1 - Hypo-osmolality and hyponatremia Status: Acute (2) Status post total right knee replacement: Code(s): Z96.651 - Presence of right artificial knee joint Status: Acute Plan HypoNa Resolved -Asymptomatic HypoNa -TSH normal -if necessary Cortisol will be measured -Possible due to SIADH and dehydration -Euvolemia -Goal 6-8 meq/l in 24 hr period -Urine Na and urine osmolarity pending -held hydrochlorothiazide -advised to CMP in a week and discussed the results with PCP Subjective Date/time seen: 11/24/24 07:54 Interval history: HypoNa results with holding hydrochlorothiazide. Advised to puff BMP in a week discussed the result with PCP and hydrochlorothiazide can be restarted if needed we Review of Systems Review of Systems: All systems reviewed & are unremarkable except as noted in HPI and below Exam Narrative: 64-year-old. Resting comfortably in chair. Alert and oriented x3. No acute distress. Not wearing compression socks. (advised her to put them back on to decrease risk of blood clot) Dressing intact with no drainage. Mild swelling. No ecchymosis. No erythema. No hematoma. No warmth. Range of motion limited due to pain. Calf nontender. Neurologic status intact. No varicosities. Distal pulses palpable. Light touch sensation intact. Good capillary refill. Objective Data Vital Signs Vital Signs: Vital Signs - 24 hr 11/23/24 08:28 11/23/24 10:00 11/23/24 12:28 Temperature 98.7 F 97.2 F L Pulse Rate 86 87 Respiratory Rate 16 18 Blood Pressure 111/77 100/67 Pulse Oximetry 100 100 Oxygen Delivery Room Air 11/23/24 20:48 11/23/24 21:22 11/24/24 05:30 Temperature 97.8 F 97.9 F Pulse Rate 84 84 96 Respiratory Rate 16 16 16 Blood Pressure 90/50 L 109/70 Pulse Oximetry 94 94 100 Oxygen Delivery Room Air Intake/Output Intake/Output: Intake & Output 11/21/24 11/22/24 11/23/24 11/24/24 23:59 23:59 23:59 23:59 Intake Total 1390 80 1000 Balance 1390 80 1000 Meds/Results Medications: Active Medications Generic Name Dose Route Start Last Admin Trade Name Freq PRN Reason Stop Dose Admin Acetaminophen 650 mg 11/22/24 12:00 11/24/24 05:44 Acetaminophen 325 Mg Tablet PO 650 mg Q6HR BRITTANEY Administration Aspirin 81 mg 11/22/24 10:43 11/23/24 20:12 Aspirin 81 Mg Enteric Tablet PO 81 mg Q12HR BRITTANEY Administration Cyclobenzaprine HCl 10 mg 11/22/24 10:43 11/23/24 23:24 Cyclobenzaprine Hcl 10 Mg Tablet PO 10 mg Q8H PRN Administration Spasms Diphenhydramine HCl 25 mg 11/22/24 10:43 Diphenhydramine Hcl Inj 50 Mg/Ml Vial IV PUSH Q6H PRN Itching Famotidine 20 mg 11/22/24 10:43 11/23/24 20:12 Famotidine 20 Mg Tablet PO 20 mg Q12HR BRITTANEY Administration Hydrochlorothiazide 12.5 mg 11/22/24 10:43 11/23/24 08:09 Hydrochlorothiazide 12.5 Mg Capsule PO 12.5 mg QAM [facility] Administration Hydromorphone HCl 1 mg 11/23/24 14:52 11/24/24 06:30 Hydromorphone Hcl Inj (*Crx) 2 Mg/Ml Vial IV PUSH 1 mg Q2H PRN Administration Breakthrough Pain Rated 7-10 or NPO Hydromorphone HCl 0.5 mg 11/23/24 14:52 11/23/24 15:53 Hydromorphone Hcl Inj (*Crx) 2 Mg/Ml Vial IV PUSH 0.5 mg Q2H PRN Administration Breakthrough Pain Rated 4-6 or NPO Sodium Chloride 1,000 mls @ 75 mls/hr 11/23/24 09:30 11/24/24 03:10 Normal Saline Iv IV CONT 75 mls/hr .[id number] [facility] Administration Lisinopril 30 mg 11/22/24 11:05 11/23/24 08:08 Lisinopril 10 Mg Tablet PO 30 mg QAM [facility] Administration Loratadine 10 mg 11/22/24 10:43 Loratadine 10 Mg Tablet PO DAILY PRN allergy symptoms Naloxone HCl 0.1 mg 11/22/24 10:43 Naloxone Hcl 0.4 Mg/Ml Vial IV PUSH Q2M PRN Opiate Reversal Ondansetron HCl 4 mg 11/22/24 10:43 Ondansetron Inj 4 Mg/2 Ml Vial IV PUSH Q4H PRN Nausea And Vomiting Oxycodone/Acetaminophen 1 tablet 11/22/24 10:43 11/23/24 18:55 Oxycodone/Acetaminophen (*Crx) 5-325 Mg Tablet PO 1 tablet Q4H PRN Administration Pain Rated 4-6 Oxycodone/Acetaminophen 1 tab 11/22/24 10:43 11/23/24 08:08 Oxycodone/Acetaminophen (*Crx) 10-325 Mg Tablet PO 1 tab Q6H PRN Administration Pain Rated 7-10 Pantoprazole Sodium 40 mg 11/22/24 10:43 11/23/24 08:08 Pantoprazole 40 Mg Tablet PO 12/22/24 10:42 40 mg DAILY BRITTANEY Administration Polyethylene Glycol 17 gm 11/22/24 10:43 11/23/24 08:10 Polyethylene Glycol 3350 17 Gm Powd.Pack PO Not Given QAM BRITTANEY Prednisone 5 mg 11/22/24 17:00 11/23/24 17:23 Prednisone 5 Mg Tablet PO 5 mg DAILY@1700 BRITTANEY Administration Senna/Docusate Sodium 2 tab 11/22/24 10:43 11/23/24 17:24 Senna/Docusate Sodium Tablet PO Not Given BID BRITTANEY Tramadol HCl 50 mg 11/22/24 10:43 11/22/24 11:21 Tramadol Hcl (*Crx) 50 Mg Tablet PO 50 mg Q4H PRN Administration Pain Rated 1-3 Radiology Results: ITS Impressions Knee X-Ray 11/22/24 10:40 IMPRESSION: No acute osseous abnormality right knee. Total knee arthroplasty with postoperative changes in the subcutaneous tissues.. Labs Labs: Laboratory Results - last 24 hr 11/23/24 11/23/24 11/23/24 05:10 12:12 12:12 WBC 9.6 RBC 3.10 L Hgb 10.2 L Hct 32.8 L MCV 105.8 H MCH 32.9 MCHC 31.1 L RDW 12.4 Plt Count 250 MPV 9.7 Sodium 131 L 132 L Potassium 3.9 Chloride Carbon Dioxide Anion Gap BUN Creatinine Estim Creat Clear Calc Estimated GFR Glucose Calcium Phosphorus Magnesium Total Bilirubin AST ALT Alkaline Phosphatase Total Protein Albumin TSH (Reflex) 0.545 Ur Random Sodium 11/23/24 11/23/24 11/23/24 12:12 12:12 12:12 WBC RBC Hgb Hct MCV MCH MCHC RDW Plt Count MPV Sodium Potassium 3.9 Chloride 98 98 Carbon Dioxide 23 24 Anion Gap 10 BUN Creatinine Estim Creat Clear Calc Estimated GFR Glucose Calcium Phosphorus Magnesium Total Bilirubin AST ALT Alkaline Phosphatase Total Protein Albumin TSH (Reflex) Ur Random Sodium 11/23/24 11/23/24 11/23/24 12:12 12:12 12:12 WBC RBC Hgb Hct MCV MCH MCHC RDW Plt Count MPV Sodium Potassium Chloride Carbon Dioxide Anion Gap 10 BUN 28 H 28 H Creatinine 1.27 H 1.28 H Estim Creat Clear Calc 41 Estimated GFR Glucose Calcium Phosphorus Magnesium Total Bilirubin AST ALT Alkaline Phosphatase Total Protein Albumin TSH (Reflex) Ur Random Sodium 11/23/24 11/23/24 11/23/24 12:12 12:12 12:12 WBC RBC Hgb Hct MCV MCH MCHC RDW Plt Count MPV Sodium Potassium Chloride Carbon Dioxide Anion Gap BUN Creatinine Estim Creat Clear Calc 40 Estimated GFR 43 L 42 L Glucose 97 87 Calcium 8.4 Phosphorus Magnesium Total Bilirubin AST ALT Alkaline Phosphatase Total Protein Albumin TSH (Reflex) Ur Random Sodium 11/23/24 11/23/24 11/23/24 12:12 12:12 19:07 WBC RBC Hgb Hct MCV MCH MCHC RDW Plt Count MPV Sodium Potassium Chloride Carbon Dioxide Anion Gap BUN Creatinine Estim Creat Clear Calc Estimated GFR Glucose Calcium 8.4 Phosphorus 3.3 Magnesium 1.7 Total Bilirubin 0.4 AST 32 ALT 21 Alkaline Phosphatase 47 Total Protein 7.0 Albumin 3.9 3.9 TSH (Reflex) Ur Random Sodium 32 Hospitalist MIPS Advance Care Plan I have confirmed that the patient's Advanced Care Plan is present, code status is documented, or surrogate decision maker is listed in patient medical record.: Yes Medication Reconciliation I have utilized all available resources to obtain, update and review the patients current medications (includes all prescriptions, OTC, herbals, cannabis, and nutritional supplements).: Yes
[2024-11-24 08:12] LABS: Alanine Aminotransferase 13 U/L (6-35); Albumin Level 3.6 g/dL (3.5-5.1); Alkaline Phosphatase 48 U/L (38-126); Anion Gap 5 mmol/L (4-12); Aspartate Amino Transferase 30 U/L (14-36); Bilirubin,Total 0.3 mg/dL (0.2-1.3); Blood Urea Nitrogen 27 mg/dL (7-17); Calcium 8.3 mg/dL (8.4-10.2); Carbon Dioxide 25 mmol/L (22-30); Chloride 105 mmol/L (98-107); Estimated CRCL calculation 53 ml/min; Estimated Glomerular Filt Rate 60; Glucose 105 mg/dL (65-110); Potassium 4.7 mmol/L (3.4-5.0); Sodium 135 mmol/L (137-145)
[2024-11-24] MEDS: lisinopriL 10 MG TABLET 30 MG PO (08:18)
[2024-11-24] MEDS: ASPIRIN 81 MG ENTERIC TABLET PO (08:18)
[2024-11-24] MEDS: oxyCODONE/ACETAMINOPHEN (*CRX) 10-325 MG TABLET 1 TAB PO (08:19)
[2024-11-24] MEDS: FAMOTIDINE 20 MG TABLET PO (08:19)
[2024-11-24] MEDS: PANTOPRAZOLE 40 MG TABLET PO (08:19)
[2024-11-24] MEDS: SENNA/DOCUSATE SODIUM TABLET 2 TAB PO (08:19)
[2024-11-24] MEDS: polyethylene glycoL 3350 17 GM POWD.PACK PO (08:23)
[2024-11-24 08:28] LABS: Hematocrit 30.2 % (37.0-47.0); Hemoglobin 9.4 g/dL (12.0-15.0); Mean Corpuscular HGB Conc 31.1 g/dl (32-36); Mean Corpuscular Hemoglobin 32.9 pg (26-34); Mean Corpuscular Volume 105.6 fl (80-100); Platelet Count Result 245 k/mm3 (150-375); Red Blood Count 2.86 M/mm3 (4.2-5.4); Red Cell Distribution Width 12.4 % (11.5-14.5); White Blood Count 7.4 K/mm3 (4.5-10.0)
--- NOTE | 2024-11-24 08:43 | PCPTNOTE ---
Pt just received breakfast and wants to eat first. Will attempt again.
--- NOTE | 2024-11-24 11:03 | P.DS_ITS ---
DS: Admitting Diagnosis Discharge Date 11/24/24 Admitting Diagnosis Knee arthritis. DS: Discharge Diagnosis Discharge Diagnosis (1) Status post total right knee replacement: Code(s): Z96.651 - Presence of right artificial knee joint Status: Acute Assessment and Plan: Postop day 2: Right total knee arthroplasty. Patient tolerated procedure well. She did have hyponatremia and slightly worsening kidney function after surgery. Hospitalist was consulted. Pain also not well controlled and required IV pain medications. Better control today. Appreciate hospitalist recommendations. Labs improving. No numbness or tingling. We had a lengthy discussion regarding postoperative wound care, limitations, expectations, and exercises. Patient shows good understanding. She has had initial physical therapy and is tolerating it well. DVT prophylaxis: 81 mg baby aspirin b.i.d. for 14 days. Pain medication: Percocet. Prednisone. Meloxicam. Patient has followup appointment with Dr. Islas in 3 weeks. DS: Summary Hospital Course Reason for hospitalization: Total knee arthroplasty Hospital Course: Patient tolerated procedure well. She did have hyponatremia and slightly worsening kidney function after surgery. Hospitalist was consulted. Pain also not well controlled and required IV pain medications. Better control today. Appreciate hospitalist recommendations. Labs improving. Status at Discharge Functional status at discharge: uses cane/walker Overall status at discharge: patient is progressing back to baseline Time Spent with Patient Time attestation: Total time spent providing and/or coordinating discharge services: Exam Narrative: Overweight female. 64 y/o. Resting comfortably in chair. No acute distress. A&O x3. Wearing compression socks bilaterally. Dressing intact with no drainage. Moderate swelling. Small area of ecchymosis. No erythema. No hematoma. Good early range of motion. Calf nontender. Neurologic status intact. No varicosities. Distal pulses palpable. DS: Data Data Completed and Pending Labs on day of discharge: Labs from last 24 hours 11/24/24 11/23/24 11/23/24 07:51 19:07 12:12 WBC 7.4 RBC 2.86 L Hgb 9.4 L Hct 30.2 L MCV 105.6 H MCH 32.9 MCHC 31.1 L RDW 12.4 Plt Count 245 MPV 10.0 Sodium 135 L Potassium 4.7 Chloride 105 Carbon Dioxide 25 Anion Gap 5 BUN 27 H Creatinine 0.95 Estim Creat Clear Calc 53 Estimated GFR 60 Glucose 105 Calcium 8.3 L Phosphorus Magnesium Total Bilirubin 0.3 AST 30 ALT 13 Alkaline Phosphatase 48 Total Protein 7.0 Albumin 3.6 3.9 TSH (Reflex) Urine Osmolality Pending Ur Random Sodium 32 11/23/24 11/23/24 11/23/24 12:12 12:12 12:12 WBC RBC Hgb Hct MCV MCH MCHC RDW Plt Count MPV Sodium Potassium Chloride Carbon Dioxide Anion Gap BUN Creatinine Estim Creat Clear Calc Estimated GFR 42 L Glucose 87 97 Calcium 8.4 8.4 Phosphorus 3.3 Magnesium 1.7 Total Bilirubin 0.4 AST 32 ALT 21 Alkaline Phosphatase 47 Total Protein 7.0 Albumin 3.9 TSH (Reflex) Urine Osmolality Ur Random Sodium 11/23/24 11/23/24 11/23/24 12:12 12:12 12:12 WBC RBC Hgb Hct MCV MCH MCHC RDW Plt Count MPV Sodium Potassium Chloride Carbon Dioxide Anion Gap BUN 28 H Creatinine 1.28 H 1.27 H Estim Creat Clear Calc 40 41 Estimated GFR 43 L Glucose Calcium Phosphorus Magnesium Total Bilirubin AST ALT Alkaline Phosphatase Total Protein Albumin TSH (Reflex) Urine Osmolality Ur Random Sodium 11/23/24 11/23/24 11/23/24 12:12 12:12 12:12 WBC RBC Hgb Hct MCV MCH MCHC RDW Plt Count MPV Sodium Potassium Chloride 98 Carbon Dioxide 24 23 Anion Gap 10 10 BUN 28 H Creatinine Estim Creat Clear Calc Estimated GFR Glucose Calcium Phosphorus Magnesium Total Bilirubin AST ALT Alkaline Phosphatase Total Protein Albumin TSH (Reflex) Urine Osmolality Ur Random Sodium 11/23/24 11/23/24 11/23/24 12:12 12:12 12:12 WBC 9.6 RBC 3.10 L Hgb 10.2 L Hct 32.8 L MCV 105.8 H MCH 32.9 MCHC 31.1 L RDW 12.4 Plt Count 250 MPV 9.7 Sodium 132 L 131 L Potassium 3.9 3.9 Chloride 98 Carbon Dioxide Anion Gap BUN Creatinine Estim Creat Clear Calc Estimated GFR Glucose Calcium Phosphorus Magnesium Total Bilirubin AST ALT Alkaline Phosphatase Total Protein Albumin TSH (Reflex) Urine Osmolality Ur Random Sodium 11/23/24 05:10 WBC RBC Hgb Hct MCV MCH MCHC RDW Plt Count MPV Sodium Potassium Chloride Carbon Dioxide Anion Gap BUN Creatinine Estim Creat Clear Calc Estimated GFR Glucose Calcium Phosphorus Magnesium Total Bilirubin AST ALT Alkaline Phosphatase Total Protein Albumin TSH (Reflex) 0.545 Urine Osmolality Ur Random Sodium Discharge Plan Discharge Attending physician on discharge: Julio Islas Consulting providers: Leonel Luz Discharging Clinician: Solange Ayon Anticipated Discharge Date/Time: 11/24/24 11:02 Patient Disposition: Home Activity: november shower Diet: as tolerated Wound Care Instructions: follow printed instructions Discharge Instructions: see green instruciton sheets Patient Language: Barbadian Stand Alone Forms: General Discharge Instructions Follow-up/Referrals: Solange Ayon, PA [Physician Theater Set Production Designer] - Discharge Medications: New meloxicam 15 mg tablet 15 mg PO DAILY Qty: 30 0RF Rx Instructions: Cut in half. Take 1/2 in morning and 1/2 at night. Take with food. Stop if stomach upset. prednisone 5 mg tablet 5 mg PO DAILY 21 Days Qty: 21 0RF aspirin 81 mg tablet,delayed release (DR/EC) 81 mg PO BID 14 Days Qty: 28 0RF oxycodone-acetaminophen 5-325 mg tablet 1 - 2 tablet PO Q4-6H PRN (Reason: pain) 7 Days Qty: 30 0RF Continued acetaminophen [Tylenol Arthritis Pain] 650 mg tablet extended release 1,300 mg PO Q12H PRN (Reason: pain) multivitamin [Daily Multi-Vitamin] Tablet 1 tablet PO DAILY omeprazole 20 mg capsule,delayed release(DR/EC) 20 mg PO DAILY loratadine [Claritin] 10 mg Tablet 10 mg PO DAILY PRN (Reason: allergy symptoms) Patient Comments: Reports taking this seasonally Adults Multivitamin 1 tab-cap PO DAILY hydrochlorothiazide 12.5 mg capsule See Rx Instructions .ROUTE .COMPLEX Qty: 100 2RF Dose Instruction: TAKE 1 CAPSULE BY MOUTH DAILY Patient Comments: QAM Rx Instructions: TAKE 1 CAPSULE BY MOUTH DAILY lisinopril 30 mg tablet See Rx Instructions .ROUTE .COMPLEX Qty: 90 1RF Dose Instruction: TAKE 1 TABLET BY MOUTH DAILY Patient Comments: QAM Rx Instructions: TAKE 1 TABLET BY MOUTH DAILY Date of admission: 11/23/24 16:10 Primary Care Provider: Fady Aquino Admitting Provider: Julio Islas Attending physician on admission: Julio Islas Condition: Stable
[2024-11-24] MEDS: oxyCODONE/ACETAMINOPHEN (*CRX) 5-325 MG TABLET 1 TABLET PO (12:21)
== END 2024-11-24 13:05 | disposition home or self-care (01) ==
LOC: ANHSURGERY 16:29 → ANH3MEDSUR 16:29
PROVIDERS: Family Medicine; General Practice; Physician Assistant Surgical; Admitting Provider Orthopaedic Surgery; PCP Family Medicine; Visit Provider Orthopaedic Surgery
PROC: (CPT 27447; principal; 2024-11-22 07:30)
DX: M17.11 Unilateral primary osteoarthritis, right knee (principal); E87.1 Hypo-osmolality and hyponatremia; E78.2 Mixed hyperlipidemia; I10 Essential (primary) hypertension; Z79.899 Other long term (current) drug therapy
CPT/HCPCS: 27447; 36415; 73560; 80048; 80053; 80069; 83735; 83935; 84300; 84443; 85025; 85027; 86850; 86900; 86901; 97110; 97116; 97161; 97165; 97530; 97535; A9270; C1713; C1776; G0378; J0171; J0690; J1100; J1171; J1885; J2003; J2250; J2270; J2405; J2704; J2795; J3010; J7030; J7120; J7512

== ENCOUNTER 2025-05-18 08:11 | Outpatient (CLI) | payer BC, SELFPAY ==
[2025-05-18 08:47] LABS: Hematocrit 36.2 % (37.0-47.0); Hemoglobin 11.8 g/dL (12.0-15.0); Immature Granulocyte Percent A 0.2 % (0-0.5); Lymphocytes Absolute Auto 1.48 K/mm3 (0.9-3.2); Mean Corpuscular HGB Conc 32.6 g/dl (32-36); Mean Corpuscular Hemoglobin 32.7 pg (26-34); Mean Corpuscular Volume 100.3 fl (80-100); Nucleated Red Blood Cells Absolute Auto 0.000 K/mm3 (0.0-0.012); Nucleated Red Blood Cells Perc 0.0 % (0.0-0.2); Platelet Count Result 295 k/mm3 (150-375); Red Blood Count 3.61 M/mm3 (4.2-5.4); White Blood Count 4.1 K/mm3 (4.5-10.0)
[2025-05-18 09:22] LABS: Alanine Aminotransferase 21 U/L (6-35); Albumin Level 4.3 g/dL (3.5-5.1); Alkaline Phosphatase 72 U/L (38-126); Anion Gap 6 mmol/L (4-12); Aspartate Amino Transferase 39 U/L (14-36); Bilirubin,Total 0.5 mg/dL (0.2-1.3); Blood Urea Nitrogen 8 mg/dL (7-17); Calcium 9.7 mg/dL (8.4-10.2); Carbon Dioxide 27 mmol/L (22-30); Chloride 104 mmol/L (98-107); Cholesterol 262 mg/dL (0-200); Estimated Glomerular Filt Rate > 60; Glucose 95 mg/dL (65-110); HDL Direct 107 mg/dL; Potassium 4.5 mmol/L (3.4-5.0); Sodium 137 mmol/L (137-145); Total Protein 7.7 g/dL (6.3-8.2); Triglycerides 111 mg/dL (<150)
[2025-05-19 05:38] LABS: Vitamin B12 238 pg/mL (232-1245)
== END 2025-05-18 08:12 | disposition home or self-care (01) ==
LOC: ANHLAB 08:13
PROVIDERS: PCP Family Medicine; Visit Provider Family Medicine
DX: I10 Essential (primary) hypertension (principal); E78.2 Mixed hyperlipidemia; E53.8 Deficiency of other specified B group vitamins; E87.1 Hypo-osmolality and hyponatremia
CPT/HCPCS: 36415; 80053; 80061; 82607; 85025